=== PATIENT | female | born 1940 | race Caucasian/White ===

== ENCOUNTER 2017-08-20 17:59 | Inpatient (IN) ==
[2017-08-20] MEDS ORDERED: *HR* Metoprolol 5 MG/5 ML VIAL IVP PRN (20:01)
[2017-08-20] MEDS ORDERED: Dextrose Gel 15 GM PO PRN ×2 (20:06)
[2017-08-20] MEDS ORDERED: D5% in Water 1,000 ML IVC PRN (20:06)
[2017-08-20] MEDS ORDERED: *HR* Dextrose 50 % in Water (Syg) 50 ML SYRINGE IVP PRN (20:06)
[2017-08-20] MEDS: 0.9 % Sodium Chloride 1,000 ML IVC SCH (22:20)
[2017-08-20] MEDS: *HR* Metoprolol 5 MG/5 ML VIAL IVP SCH (23:26)
[2017-08-20] MEDS: Insulin LISPRO 300 UNITS/3 ML VIAL SQ SCH (23:26)
[2017-08-20] MEDS: Ondansetron 4 MG/2 ML VIAL IVP PRN (23:26)
[2017-08-21] MEDS: *HR* Morphine 2 MG/ML SYRINGE IVP PRN ×4 (03:46→18:40)
[2017-08-21 03:55] LABS: Basophils % 0.4 %; Hemoglobin 12.7 g/dL (11.5-15.4); Immature Granulocytes % 0.4 % (0-4); Red Cell Distribution Width 13.7 % (11.5-14.5)
[2017-08-21 03:57] LABS: Eosinophils # 0.1 K/mcL (0.0-0.6); Eosinophils % 2.3 %; Hematocrit 38.1 % (35.3-44.9); Immature Platelets 11.3 % (1.1-6.1); Lymphocytes # 0.6 K/mcL (0.6-4.6); Lymphocytes % 12.4 %; Mean Corpuscular HGB Conc 33.3 g/dL (31.6-35.5); Mean Corpuscular Hemoglobin 29.9 pg (28.0-33.3); Mean Corpuscular Volume 89.6 fL (83.0-100.0); Mean Platelet Volume 12.6 fL (9.4-12.4); Monocytes # 0.5 K/mcL (0.0-1.3); Monocytes % 9.7 %; Neutrophils # 3.9 K/mcL (1.6-8.9); Red Blood Count 4.25 M/mcL (3.82-4.97); Segmented Neutrophils % 74.8 %
[2017-08-21 04:00] LABS: Platelet Count 47 K/mcL (140-400)
[2017-08-21 04:07] LABS: BUN/Creatinine Ratio 17 (6-26); Blood Urea Nitrogen 15 mg/dL (7-20); Calcium 8.9 mg/dL (8.6-10.8); Carbon Dioxide 26 mEq/L (19-29); Chloride 103 mEq/L (98-109); Glucose 233 mg/dL (70-99); Magnesium 1.2 mg/dL (1.6-2.6); Osmolality,Calculated 290 (280-300); Phosphorous 2.5 mg/dL (2.3-4.7); Potassium 3.6 mEq/L (3.5-4.5); Sodium 136 mEq/L (136-145); eGFR For African Americans > 60 (> 60); eGFR For Non-African Americans > 60 (> 60)
[2017-08-21] MEDS: *HR* Heparin 5,000 UNIT/ML VIAL SQ SCH ×2 (05:50→18:34)
[2017-08-21] MEDS: Insulin LISPRO 300 UNITS/3 ML VIAL SQ SCH ×4 (05:51→23:28)
[2017-08-21] MEDS: *HR* Metoprolol 5 MG/5 ML VIAL IVP SCH ×4 (05:52→23:30)
[2017-08-21] MEDS: Ondansetron 4 MG/2 ML VIAL IVP PRN (06:00)
[2017-08-21] MEDS ORDERED: Magnesium Sulfate 4 GM in D5% in Water 100 ML IVPB ONE (07:08)
--- NOTE | 2017-08-21 07:10 | General Surg History&Physical ---
<Jeanie Paulino - Last Filed: 08/21/17 13:19> Date of Encounter: 08/21/17 Time of Encounter: 10:00 Assessment and Plan (1) Abdominal pain Status: Acute Presented with chief complaint of 3 days of abdominal pain, nausea, diarrhea mucinous/possibly bloody. CT showed possible small bowel obstruction. Patient is currently NPO. NG is placed with 250ml since admission of dark brown to dark red output. Plan: - hemocult test - KUB for NG tube placement - Diet: NPO - Activity order for ambulating TID - Chloraseptic spray Qualifiers: Abdominal location: generalized Qualified Code(s): R10.84 - Generalized abdominal pain (2) Chronic idiopathic thrombocytopenia Status: Chronic Patient admits to chronic thrombocytopenia with unknown cause. Patient denies easy bruising or bleeding. Platelet count is within normal range per her previous records at [facility]. Continue to monitor. (3) Hypomagnesemia Status: Acute Magnesium = 1.2. Patient given 4 g of magnesium sulfate IV. We will recheck in the morning. (4) Diarrhea Status: Resolved Diarrhea has resolved since yesterday afternoon. Will do hemocult testing. Qualifiers: Diarrhea type: unspecified type Qualified Code(s): R19.7 - Diarrhea, unspecified (5) HTN (hypertension) Status: Chronic Patient's blood pressure is well-controlled. Continue home medications of Spironolactone and Propranolol. Qualifiers: Hypertension type: essential hypertension Qualified Code(s): I10 - Essential (primary) hypertension (6) Diabetes mellitus Status: Chronic Patient recently went on glipizide for diabetes. Common side effects of glipizide include diarrhea, nausea. Patient will be placed on a sliding scale and we will discontinue glipizide for now. Qualifiers: Qualified Code(s): E11.9 - Type 2 diabetes mellitus without complications (7) DVT prophylaxis Status: Acute Intermittent pneumatic compression devices. History of Present Illness HPI: Ms. Stuart is a 77 year old female presented in [place] ED with 3 days of abdominal pain, nausea and 2 days of watery, possibly bloody diarrhea who is directly admitted to surgery for small bowel obstruction found on CT and found to have a UTI. Patient states that about 3 days ago she began having diffuse abdominal pain has not vomited. Her diarrhea was mucousy and she says she saw a possible bright red blood. She has hemorrhoids but this was with in the stool. Patient has never had a colonoscopy before. She denies travel history, sick contacts. Patient admits to weight loss of 15 pounds over the last 2-3 months but she was also started on Lasix about that time. Patient denies night sweats, fevers. Patient's surgical history is a hysterectomy 40 years ago. Today patient feels like her abdomen is still distended but she has not had any diarrhea since yesterday evening. She did have one pebble-like BM last night. Of note patient did start on glipizide about 3 days ago. Past Med Surg Social Fam HX - Past Medical History Medical history: cirrhosis, CHF, DVT, diabetes, hepatitis, hyperlipidemia, hypertension, valvular heart disease Psychiatric history: anxiety, depression - Past Surgical History Surgical History: hysterectomy - Social History Smoking Status: Never smoker Smokeless Tobacco Status: No Alcohol use: none Drug use: none - Family History Mother Hx Family Neurologic Disorders: Yes (alzheimers) Father Family Member Ethnicity: Non- Living Status: Hx Family Cardiac Disorders: Yes (CHF) Hx Family Respiratory Disorders: No Hx Family Cancer: No Hx Family GI Disorders: No Hx Family Endocrine Disorder: No Hx Family Neuromuscular Disorders: No Hx Family Neurologic Disorders: No Hx Family HEENT Disorders: No Hx Family Autoimmune Disorders: No Medications and Allergies Cholecalciferol (D-3) [Vitamin D] 1,000 unit PO DAILY 05/29/16 [History] Furosemide [Lasix] 40 mg PO DAILY 30 Days tablet 10/20/16 [Rx] Propranolol HCl 40 mg PO BID 08/20/17 [History] Spironolactone [Aldactone] 50 mg PO DAILY 08/20/17 [History] glipiZIDE [Glucotrol] 5 mg PO DAILY 08/20/17 [History] Nystatin POWDER [Nystop] 1 appl TP TID #1 bottle 08/24/17 [Rx] Potassium Chloride 10 meq PO DAILY #14 [email or web address] 08/24/17 [Rx] 3 Allergy/AdvReac Type Severity Reaction Status Date / Time meperidine Allergy Rash Verified 10/19/16 11:44 Review of Systems All systems PM: A 10-system review of systems was performed and is negative for pertinent findings except as documented above in the HPI. General Surgery Exam Initial Vital Signs Temp Pulse Resp BP Pulse Ox 97.2 F L 70 15 108/65 96 08/20/17 23:04 08/20/17 23:04 08/20/17 23:04 08/20/17 23:04 08/20/17 23:04 - Additional Findings Constitutional: Alert, in no acute distress, well nourished, well developed. Head: NG tube present in nostril with brownish/dark red outputNormocephalic, atraumatic, normal contour and symmetric, no masses, lesions or scars Heart: Normal, regular rate and rhythm, + murmurs Lungs: Clear to auscultation, no wheezes, rales, or rhonchi Abdomen: moderate distension, diffuse tenderness worst at suprapubic area, Soft , and no masses palpable, bowel sounds present and normal, no guarding or rigidity. Extremities: No clubbing, cyanosis, or edema, radial pulse +2/4, capillary refill <2sec. Skin: Skin warm and dry, no lesions, no rashes, no jaundice Neurologic: Cranial nerves II through XII grossly intact, no focal deficits, strength within normal limits in all extremities Psych: Cooperative with exam, good eye contact, cognitive function intact, judgment good insight good, speech clear, thought process logical, and goal directed Results - Labs 08/21/17 03:10 08/21/17 03:10 Abnormal lab results Plt Count 47 K/mcL (140-400) L 08/21/17 03:10 MPV 12.6 fL (9.4-12.4) H 08/21/17 03:10 Immature Plt Fraction 11.3 % (1.1-6.1) H 08/21/17 03:10 Glucose 233 mg/dL (70-99) H 08/21/17 03:10 POC Glucose 241 (58-89) H 08/21/17 05:41 Magnesium 1.2 mg/dL (1.6-2.6) L 08/21/17 03:10 Diabetes panel 08/21/17 Range/Units 03:10 Sodium 136 (136-145) mEq/L Potassium 3.6 (3.5-4.5) mEq/L Chloride 103 (98-109) mEq/L Carbon Dioxide 26 (19-29) mEq/L BUN 15 (7-20) mg/dL Creatinine 0.88 (0.57-1.11) mg/dL Glucose 233 H (70-99) mg/dL Calcium 8.9 (8.6-10.8) mg/dL Calcium panel 08/21/17 Range/Units 03:10 Calcium 8.9 (8.6-10.8) mg/dL Phosphorus 2.5 (2.3-4.7) mg/dL Pituitary panel 08/21/17 Range/Units 03:10 Sodium 136 (136-145) mEq/L Potassium 3.6 (3.5-4.5) mEq/L Chloride 103 (98-109) mEq/L Carbon Dioxide 26 (19-29) mEq/L BUN 15 (7-20) mg/dL Creatinine 0.88 (0.57-1.11) mg/dL Glucose 233 H (70-99) mg/dL Calcium 8.9 (8.6-10.8) mg/dL Adrenal panel 08/21/17 Range/Units 03:10 Sodium 136 (136-145) mEq/L Potassium 3.6 (3.5-4.5) mEq/L Chloride 103 (98-109) mEq/L Carbon Dioxide 26 (19-29) mEq/L BUN 15 (7-20) mg/dL Creatinine 0.88 (0.57-1.11) mg/dL Glucose 233 H (70-99) mg/dL Calcium 8.9 (8.6-10.8) mg/dL All other labs normal. <Kristen Freeman - Last Filed: 08/27/17 12:15> Date of Encounter: 08/21/17 Assessment and Plan (1) Abdominal pain Status: Resolved The assessment and plan as outlined above was discussed with the patient and/or family members who expressed understanding and agreement. All questions were answered. Qualifiers: Abdominal location: generalized Qualified Code(s): R10.84 - Generalized abdominal pain (2) DVT prophylaxis Status: Acute The assessment and plan as outlined above was discussed with the patient and/or family members who expressed understanding and agreement. All questions were answered. (3) Hypomagnesemia Status: Acute The assessment and plan as outlined above was discussed with the patient and/or family members who expressed understanding and agreement. All questions were answered. (4) Small bowel obstruction Status: Resolved The assessment and plan as outlined above was discussed with the patient and/or family members who expressed understanding and agreement. All questions were answered. CT scan shows small bowel obstruction continue conservative measures npo, ngt decompression prn pain control ivh hydration serial abdominal exams (5) Cirrhosis of liver Status: Chronic The assessment and plan as outlined above was discussed with the patient and/or family members who expressed understanding and agreement. All questions were answered. basic assessment shows patient is a child gómez B, some info is a little dated ( few months old) will recheck albumin and lfts in am mild to moderate amount of ascites but no encephalopathy Qualifiers: Hepatic cirrhosis type: unspecified hepatic cirrhosis Ascites presence: with ascites Qualified Code(s): K74.60 - Unspecified cirrhosis of liver (6) Diabetes mellitus Status: Chronic The assessment and plan as outlined above was discussed with the patient and/or family members who expressed understanding and agreement. All questions were answered. 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 All questions were answered. Qualifiers: Hypertension type: essential hypertension Qualified Code(s): I10 - Essential (primary) hypertension (8) Pancytopenia Status: Chronic The assessment and plan as outlined above was discussed with the patient and/or family members who expressed understanding and agreement. All questions were answered. (9) Diabetes type 2, controlled Status: Chronic The assessment and plan as outlined above was discussed with the patient and/or family members who expressed understanding and agreement. All questions were answered. npo, ivf hydration SSI/MBS, controlled, monitor Qualifiers: Diabetes mellitus complication status: without complication (10) HTN (hypertension) Status: Chronic The assessment and plan as outlined above was discussed with the patient and/or family members who expressed understanding and agreement. All questions were answered. holding home medication, normotensive, montiro, schedule lopressor Qualifiers: Hypertension type: essential hypertension Qualified Code(s): I10 - Essential (primary) hypertension History of Present Illness Chief complaint: abdominal pain, N/V HPI: Ms. Stuart is a 77 year old female with abdominal pain that began three days ago. The pain starts in her pelvis and radiates up into her abdomen. The pain is sharp. She has had diarrhea that contained blood for about 24 hrs. She has lost 15 lbs over last 3 months but recently started lasix due to cirrhosis/ ascites?. No fevers, chills or night sweats. She has never had a colonoscopy. She has a history of cirrhosis and ascites. Last paracentesis was approx 1 year ago. She became very bloated and the pain became more intense so she presented to the ED where labs and imaging was performed. CT shows dilated loops small bowel with sbo and transition point. She does feel a little better since NGT has been placed. Pain is improved but still present. She is passing flatus but no bm. SHe is still very distended Past Med Surg Social Fam HX - Past Medical History Source: patient - Past Surgical History Surgical History: other (paracentesis) Review of Systems All systems PM: reviewed and no additional remarkable complaints except as stated All systems PM: A 10-system review of systems was performed and is negative for pertinent findings except as documented above in the HPI. General Surgery Exam Initial Vital Signs Temp Pulse Resp BP Pulse Ox 97.2 F L 70 15 108/65 96 08/20/17 23:04 08/20/17 23:04 08/20/17 23:04 08/20/17 23:04 08/20/17 23:04 - General physical appearance well developed, well nourished, no distress, obese - Eyes PERRL, normal ocular movement - ENT normal mucosa, normocephalic - Respiratory normal expansion, clear to auscultation - Cardiovascular Cardiovascular exam: Present: RRR, no murmurs/rubs/gallops - Abdomen Abdomen general surgery: Present: soft, distended, tender. Absent: bowel sounds present, guarding, rebound Abdominal Tenderness: Present: diffusely - Integumentary Integumentary general surgery: Present: warm and dry, no abnormal pigmentation - Neurologic Present: CN 2-12 grossly intact - Musculoskeletal Present: normal gait, normal posture - Psychiatric Psychiatric general surgery: Present: A&Ox3, speech is normal Results - Labs 08/24/17 05:23 08/24/17 05:23 Abnormal lab results Plt Count 47 K/mcL (140-400) L 08/21/17 03:10 MPV 12.6 fL (9.4-12.4) H 08/21/17 03:10 Immature Plt Fraction 11.3 % (1.1-6.1) H 08/21/17 03:10 Glucose 233 mg/dL (70-99) H 08/21/17 03:10 POC Glucose 236 (58-89) H 08/21/17 11:54 Magnesium 1.2 mg/dL (1.6-2.6) L 08/21/17 03:10 Diabetes panel 08/21/17 Range/Units 03:10 Sodium 136 (136-145) mEq/L Potassium 3.6 (3.5-4.5) mEq/L Chloride 103 (98-109) mEq/L Carbon Dioxide 26 (19-29) mEq/L BUN 15 (7-20) mg/dL Creatinine 0.88 (0.57-1.11) mg/dL Glucose 233 H (70-99) mg/dL Calcium 8.9 (8.6-10.8) mg/dL Calcium panel 08/21/17 Range/Units 03:10 Calcium 8.9 (8.6-10.8) mg/dL Phosphorus 2.5 (2.3-4.7) mg/dL Pituitary panel 08/21/17 Range/Units 03:10 Sodium 136 (136-145) mEq/L Potassium 3.6 (3.5-4.5) mEq/L Chloride 103 (98-109) mEq/L Carbon Dioxide 26 (19-29) mEq/L BUN 15 (7-20) mg/dL Creatinine 0.88 (0.57-1.11) mg/dL Glucose 233 H (70-99) mg/dL Calcium 8.9 (8.6-10.8) mg/dL Adrenal panel 08/21/17 Range/Units 03:10 Sodium 136 (136-145) mEq/L Potassium 3.6 (3.5-4.5) mEq/L Chloride 103 (98-109) mEq/L Carbon Dioxide 26 (19-29) mEq/L BUN 15 (7-20) mg/dL Creatinine 0.88 (0.57-1.11) mg/dL Glucose 233 H (70-99) mg/dL Calcium 8.9 (8.6-10.8) mg/dL All other labs normal. - Imaging CT scan - abdomen: report reviewed, image reviewed CT scan - pelvis: report reviewed, image reviewed - Attending Attestation I examined this patient and my medical decision-making was reviewed with the Resident Physician. I agree with the documented findings, disposition and treatment plan as described except to the extent set forth below.
[2017-08-21] MEDS: 0.9 % Sodium Chloride 1,000 ML IVC SCH ×2 (08:06→22:33)
[2017-08-21] MEDS: Magnesium Sulfate 2 GM in D5% in Water 100 ML IVPB SCH ×2 (08:07→09:43)
[2017-08-21] MEDS: Pantoprazole 40 MG VIAL IVP SCH (08:07)
[2017-08-21] MEDS ORDERED: Chloraseptic Spray 177 ML BOTTLE MM PRN (13:14)
[2017-08-22 04:37] LABS: Basophils % 0.6 %; Immature Granulocytes % 0.6 % (0-4)
[2017-08-22 04:40] LABS: Eosinophils # 0.2 K/mcL (0.0-0.6); Eosinophils % 4.5 %; Hematocrit 37.1 % (35.3-44.9); Hemoglobin 12.1 g/dL (11.5-15.4); Immature Platelets 10.2 % (1.1-6.1); Lymphocytes # 0.6 K/mcL (0.6-4.6); Lymphocytes % 16.3 %; Mean Corpuscular HGB Conc 32.6 g/dL (31.6-35.5); Mean Corpuscular Hemoglobin 29.8 pg (28.0-33.3); Mean Corpuscular Volume 91.4 fL (83.0-100.0); Mean Platelet Volume 11.7 fL (9.4-12.4); Monocytes # 0.5 K/mcL (0.0-1.3); Monocytes % 12.7 %; Neutrophils # 2.4 K/mcL (1.6-8.9); Platelet Count 48 K/mcL (140-400); Red Blood Count 4.06 M/mcL (3.82-4.97); Red Cell Distribution Width 13.9 % (11.5-14.5); Segmented Neutrophils % 65.3 %
[2017-08-22 04:57] LABS: Alanine Aminotransferase 18 Units/L (0-55); Albumin 2.5 g/dL (3.5-5.0); Albumin/Globulin Ratio 0.7 (1.1-2.2); Alkaline Phosphatase 101 Units/L (38-126); Aspartate Amino Transferase 32 Units/L (5-34); BUN/Creatinine Ratio 18 (6-26); Blood Urea Nitrogen 14 mg/dL (7-20); Calcium 8.3 mg/dL (8.6-10.8); Carbon Dioxide 27 mEq/L (19-29); Chloride 108 mEq/L (98-109); Globulin 3.6 g/dL (2.4-3.5); Glucose 178 mg/dL (70-99); Magnesium 1.8 mg/dL (1.6-2.6); Osmolality,Calculated 295 (280-300); Phosphorous 2.1 mg/dL (2.3-4.7); Potassium 3.8 mEq/L (3.5-4.5); Sodium 140 mEq/L (136-145); Total Protein 6.1 g/dL (6.0-8.3); eGFR For African Americans > 60 (> 60); eGFR For Non-African Americans > 60 (> 60)
[2017-08-22] MEDS: *HR* Metoprolol 5 MG/5 ML VIAL IVP SCH ×4 (05:44→23:38)
[2017-08-22] MEDS: *HR* Heparin 5,000 UNIT/ML VIAL SQ SCH ×2 (05:46→19:03)
[2017-08-22] MEDS: Insulin LISPRO 300 UNITS/3 ML VIAL SQ SCH ×4 (05:47→23:40)
[2017-08-22] MEDS: 0.9 % Sodium Chloride 1,000 ML IVC SCH ×2 (05:49→20:27)
[2017-08-22] MEDS: Pantoprazole 40 MG VIAL IVP SCH (09:31)
--- NOTE | 2017-08-22 10:28 | General Surgery Progress Note ---
<Jeanie Paulino - Last Filed: 08/22/17 13:05> Date of Encounter: 08/22/17 Time of Encounter: 08:30 - Assessment and Plan (1) Abdominal pain Current Visit: Yes Status: Acute Presented with chief complaint of 3 days of abdominal pain, nausea, diarrhea mucinous/possibly bloody. CT showed possible small bowel obstruction. Patient is currently NPO. NG is placed with 450ml since admission of dark brown to dark red output. KUB showed normal NG placement. Plan: - 2 view abdominal XR - hemocult test pending BM - straight cath, pending UA/cultures - Diet: NPO - Activity order for ambulating TID - Chloraseptic spray Qualifiers: Abdominal location: generalized Qualified Code(s): R10.84 - Generalized abdominal pain (2) Chronic idiopathic thrombocytopenia Current Visit: Yes Status: Chronic Patient admits to chronic thrombocytopenia with unknown cause. Patient denies easy bruising or bleeding. Platelet count is within normal range per her previous records at [facility]. Continue to monitor. (3) Hypomagnesemia Current Visit: Yes Status: Acute Magnesium = 1.2 on 08/21/17. Today Mg= 1.8 We will recheck in the morning. (4) Diarrhea Current Visit: Yes Status: Resolved Diarrhea has resolved. Hemocult testing pending. Qualifiers: Diarrhea type: unspecified type Qualified Code(s): R19.7 - Diarrhea, unspecified (5) HTN (hypertension) Current Visit: No Status: Chronic Patient's blood pressure is well-controlled. Continue home medications of Spironolactone and Propranolol. Qualifiers: Hypertension type: essential hypertension Qualified Code(s): I10 - Essential (primary) hypertension (6) Diabetes mellitus Current Visit: No Status: Chronic Patient recently went on glipizide for diabetes. Common side effects of glipizide include diarrhea, nausea. Patient will be placed on a sliding scale and we will discontinue glipizide for now. Qualifiers: Qualified Code(s): E11.9 - Type 2 diabetes mellitus without complications (7) DVT prophylaxis Current Visit: Yes Status: Acute Intermittent pneumatic compression devices. Subjective Narrative: Ms. Stuart is a 77 year old female presented in [facility] ED with 3 days of abdominal pain, nausea and 2 days of watery, possibly bloody diarrhea who is directly admitted to surgery for small bowel obstruction found on CT. Today, patient states that her abdominal pain is feeling better than yesterday. Patient admits to multiple episodes of flatus. Denies BM. Objective Vital Signs - Last 8 Hours Temp Pulse Resp BP Pulse Ox 08/22/17 09:29 95 08/22/17 06:43 97.7 F 73 18 121/75 95 08/22/17 05:46 98.2 F 84 17 131/78 94 Intake and Output 08/21/17 08/22/17 08/22/17 23:59 07:59 15:59 Intake Total 1000 / 1000 1000 / 1000 0 / 0 Output Total 0 / 0 350 / 350 Balance 1000 / 1000 650 / 650 0 / 0 Intake: IV Fluids 1000 / 1000 1000 / 1000 0.9 % Sodium Chloride 1,000 ML 1000 / 1000 1000 / 1000 @ 100 mls/hr IVC .Q10H MILAGROS Rx#: [id number] Oral 0 / 0 0 / 0 0 / 0 Output: Urine 0 / 0 150 / 150 Gastric Drainage 0 / 0 200 / 200 Other: Meal NPO Percent of Meal Consumed 0% Weight 95.39 kg Blood Glucose* 168 177 Patient Weight 08/22/17 23:59 Weight 95.39 kg - Additional Exam Constitutional: Alert, in no acute distress, well nourished, well developed. Head: NG tube present in nostril with brownish/dark red outputNormocephalic, atraumatic, normal contour and symmetric, no masses, lesions or scars Heart: Normal, regular rate and rhythm, + murmurs Lungs: Clear to auscultation, no wheezes, rales, or rhonchi Abdomen: moderate distension, diffuse tenderness worse at suprapubic area, no CVA tenderness, Soft, and no masses palpable, bowel sounds present and normal, no guarding or rigidity. Extremities: No clubbing, cyanosis, or edema, radial pulse +2/4, capillary refill <2sec. Skin: Skin warm and dry, no lesions, no rashes, no jaundice Neurologic: Cranial nerves II through XII grossly intact, no focal deficits, strength within normal limits in all extremities Psych: Cooperative with exam, good eye contact, cognitive function intact, judgment good insight good, speech clear, thought process logical, and goal directed - Labs 08/22/17 04:10 08/22/17 04:10 Diabetes panel 08/22/17 Range/Units 04:10 Sodium 140 (136-145) mEq/L Potassium 3.8 (3.5-4.5) mEq/L Chloride 108 (98-109) mEq/L Carbon Dioxide 27 (19-29) mEq/L BUN 14 (7-20) mg/dL Creatinine 0.77 (0.57-1.11) mg/dL Glucose 178 H (70-99) mg/dL Calcium 8.3 L (8.6-10.8) mg/dL AST 32 (5-34) Units/L ALT 18 (0-55) Units/L Alkaline Phosphatase 101 (38-126) Units/L Albumin 2.5 L (3.5-5.0) g/dL Calcium panel 08/22/17 Range/Units 04:10 Calcium 8.3 L (8.6-10.8) mg/dL Phosphorus 2.1 L (2.3-4.7) mg/dL Albumin 2.5 L (3.5-5.0) g/dL Pituitary panel 08/22/17 Range/Units 04:10 Sodium 140 (136-145) mEq/L Potassium 3.8 (3.5-4.5) mEq/L Chloride 108 (98-109) mEq/L Carbon Dioxide 27 (19-29) mEq/L BUN 14 (7-20) mg/dL Creatinine 0.77 (0.57-1.11) mg/dL Glucose 178 H (70-99) mg/dL Calcium 8.3 L (8.6-10.8) mg/dL Adrenal panel 08/22/17 Range/Units 04:10 Sodium 140 (136-145) mEq/L Potassium 3.8 (3.5-4.5) mEq/L Chloride 108 (98-109) mEq/L Carbon Dioxide 27 (19-29) mEq/L BUN 14 (7-20) mg/dL Creatinine 0.77 (0.57-1.11) mg/dL Glucose 178 H (70-99) mg/dL Calcium 8.3 L (8.6-10.8) mg/dL Total Bilirubin 2.0 H (0.2-1.2) mg/dL AST 32 (5-34) Units/L ALT 18 (0-55) Units/L Alkaline Phosphatase 101 (38-126) Units/L Albumin 2.5 L (3.5-5.0) g/dL Consult Discharge Plan - Plan Referrals: Germaine Herring, B[facility] [employer] [Primary Care Provider] - <Kristen Freeman - Last Filed: 08/22/17 14:42> Date of Encounter: 08/22/17 Time of Encounter: 08:30 - Assessment and Plan (1) Abdominal pain Current Visit: Yes Status: Acute pain improved and is not present currently she is passing flatus but no bm she feels less distended today AXR shows nonspecific bowel gas pattern will check SBFT, if normal will pull ngt and start clears Qualifiers: Abdominal location: generalized Qualified Code(s): R10.84 - Generalized abdominal pain (2) DVT prophylaxis Current Visit: Yes Status: Acute (3) Hypomagnesemia Current Visit: Yes Status: Acute (4) Small bowel obstruction Current Visit: No Status: Acute sbo improving, passing flatus without bm checked axr, normal gas pattern, will check sbft (5) Cirrhosis of liver Current Visit: No Status: Chronic Qualifiers: Hepatic cirrhosis type: unspecified hepatic cirrhosis Ascites presence: with ascites Qualified Code(s): K74.60 - Unspecified cirrhosis of liver (6) Diabetes mellitus Current Visit: No Status: Chronic continue SSI/mbs checks Qualifiers: Diabetes mellitus type: type 2 Diabetes mellitus complication status: without complication 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 correction use Qualified Code(s): E11.9 - Type 2 diabetes mellitus without complications (7) HTN (hypertension) Current Visit: No Status: Chronic continue holding home medication continue scheduled lopressor, BP wnl Qualifiers: Hypertension type: essential hypertension Qualified Code(s): I10 - Essential (primary) hypertension (8) Pancytopenia Current Visit: No Status: Chronic Subjective Patient reports: no new complaints, feels better, still having pain, pain is less, flatus, no bowel movement, afebrile Objective Vital Signs - Last 8 Hours Temp Pulse Resp BP Pulse Ox 08/22/17 13:18 129/73 08/22/17 09:29 95 08/22/17 06:43 97.7 F 73 18 121/75 95 Intake and Output 08/21/17 08/22/17 08/22/17 23:59 07:59 15:59 Intake Total 1000 / 1000 1000 / 1000 0 / 0 Output Total 0 / 0 350 / 350 75 / 75 Balance 999 / 999 650 / 650 -75 / -75 Intake: IV Fluids 1000 / 999 1000 / 1000 0.9 % Sodium Chloride 1,000 ML 1000 / 999 1000 / 1000 @ 100 mls/hr IVC .Q10H [facility]AGROS Rx#: [id number] Oral 0 / 0 0 / 0 0 / 0 Output: Urine 0 / 0 150 / 150 75 / 75 Gastric Drainage 0 / 0 200 / 200 Other: Meal NPO Percent of Meal Consumed 0% Weight 95.39 kg Blood Glucose* 168 177 150 Patient Weight 08/22/17 23:59 Weight 95.39 kg - General physical appearance well developed, well nourished, no distress - Eyes PERRL, normal ocular movement - ENT normal mucosa, normocephalic - Neck Neck exam: trachea midline - Respiratory normal expansion, clear to auscultation - Cardiovascular Cardiovascular exam: Present: RRR - Abdomen Abdomen: Present: soft. Absent: bowel sounds present, tender, guarding, rebound - Integumentary no rash, no growths - Neurologic CN 2-12 grossly intact - Musculoskeletal normal posture - Psychiatric oriented to time, oriented to person, oriented to place, memory intact - Labs 08/22/17 04:10 08/22/17 04:10 Diabetes panel 08/22/17 Range/Units 04:10 Sodium 140 (136-145) mEq/L Potassium 3.8 (3.5-4.5) mEq/L Chloride 108 (98-109) mEq/L Carbon Dioxide 27 (19-29) mEq/L BUN 14 (7-20) mg/dL Creatinine 0.77 (0.57-1.11) mg/dL Glucose 178 H (70-99) mg/dL Calcium 8.3 L (8.6-10.8) mg/dL AST 32 (5-34) Units/L ALT 18 (0-55) Units/L Alkaline Phosphatase 101 (38-126) Units/L Albumin 2.5 L (3.5-5.0) g/dL Calcium panel 08/22/17 Range/Units 04:10 Calcium 8.3 L (8.6-10.8) mg/dL Phosphorus 2.1 L (2.3-4.7) mg/dL Albumin 2.5 L (3.5-5.0) g/dL Pituitary panel 08/22/17 Range/Units 04:10 Sodium 140 (136-145) mEq/L Potassium 3.8 (3.5-4.5) mEq/L Chloride 108 (98-109) mEq/L Carbon Dioxide 27 (19-29) mEq/L BUN 14 (7-20) mg/dL Creatinine 0.77 (0.57-1.11) mg/dL Glucose 178 H (70-99) mg/dL Calcium 8.3 L (8.6-10.8) mg/dL Adrenal panel 08/22/17 Range/Units 04:10 Sodium 140 (136-145) mEq/L Potassium 3.8 (3.5-4.5) mEq/L Chloride 108 (98-109) mEq/L Carbon Dioxide 27 (19-29) mEq/L BUN 14 (7-20) mg/dL Creatinine 0.77 (0.57-1.11) mg/dL Glucose 178 H (70-99) mg/dL Calcium 8.3 L (8.6-10.8) mg/dL Total Bilirubin 2.0 H (0.2-1.2) mg/dL AST 32 (5-34) Units/L ALT 18 (0-55) Units/L Alkaline Phosphatase 101 (38-126) Units/L Albumin 2.5 L (3.5-5.0) g/dL - Imaging Abdominal x-ray: report reviewed, image reviewed - Attending Attestation I examined this patient and my medical decision-making was reviewed with the Resident Physician. I agree with the documented findings, disposition and treatment plan as described except to the extent set forth below.
[2017-08-22] MEDS: Ondansetron 4 MG/2 ML VIAL IVP PRN (20:27)
[2017-08-22] MEDS: *HR* Morphine 2 MG/ML SYRINGE IVP PRN (20:29)
[2017-08-23 04:49] LABS: Basophils % 1.1 %
[2017-08-23 04:52] LABS: Eosinophils # 0.1 K/mcL (0.0-0.6); Hemoglobin 11.2 g/dL (11.5-15.4); Immature Granulocytes % 0.7 % (0-4); Lymphocytes # 0.6 K/mcL (0.6-4.6); Mean Corpuscular HGB Conc 32.9 g/dL (31.6-35.5); Mean Corpuscular Hemoglobin 30.4 pg (28.0-33.3); Mean Corpuscular Volume 92.1 fL (83.0-100.0); Mean Platelet Volume 11.6 fL (9.4-12.4); Monocytes # 0.3 K/mcL (0.0-1.3); Monocytes % 11.3 %; Neutrophils # 1.6 K/mcL (1.6-8.9); Red Blood Count 3.69 M/mcL (3.82-4.97); Segmented Neutrophils % 59.9 %
[2017-08-23 05:02] LABS: Platelet Count 51 K/mcL (140-400)
[2017-08-23 05:10] LABS: BUN/Creatinine Ratio 18 (6-26); Blood Urea Nitrogen 14 mg/dL (7-20); Calcium 8.4 mg/dL (8.6-10.8); Carbon Dioxide 27 mEq/L (19-29); Chloride 113 mEq/L (98-109); Glucose 139 mg/dL (70-99); Osmolality,Calculated 301 (280-300); Potassium 3.8 mEq/L (3.5-4.5); Sodium 144 mEq/L (136-145); eGFR For African Americans > 60 (> 60); eGFR For Non-African Americans > 60 (> 60)
[2017-08-23] MEDS: Insulin LISPRO 300 UNITS/3 ML VIAL SQ SCH ×3 (05:17→17:08)
[2017-08-23] MEDS: *HR* Metoprolol 5 MG/5 ML VIAL IVP SCH ×3 (05:18→17:09)
[2017-08-23] MEDS: *HR* Heparin 5,000 UNIT/ML VIAL SQ SCH ×2 (05:19→17:08)
[2017-08-23] MEDS: Pantoprazole 40 MG VIAL IVP SCH (07:51)
[2017-08-23] MEDS: 0.9 % Sodium Chloride 1,000 ML IVC SCH ×3 (07:51→20:41)
[2017-08-23 08:45] LABS: Magnesium 1.6 mg/dL (1.6-2.6)
--- NOTE | 2017-08-23 09:34 | General Surgery Progress Note ---
<Jeanie Paulino - Last Filed: 08/23/17 09:30> Date of Encounter: 08/23/17 Time of Encounter: 09:31 - Assessment and Plan (1) Abdominal pain Current Visit: Yes Status: Acute Presented with chief complaint of 3 days of abdominal pain, nausea, diarrhea mucinous/possibly bloody. CT showed possible small bowel obstruction. Straight cath culture showed no bacterial growth. Patient is now on clear liquids and is tolerating well without nausea or vomiting. Patient's abdominal pain is absent this morning. Abd XR showed normal gas pattern. SBFT showed no obstruction. NG has been discontinued. Plan: - hemocult test pending BM - Diet: Clear liquids - Activity order for ambulating TID - IV fluids NS 75ml/hr running - Protonix 40mg IVP daily Qualifiers: Abdominal location: generalized Qualified Code(s): R10.84 - Generalized abdominal pain (2) Chronic idiopathic thrombocytopenia Current Visit: Yes Status: Chronic Patient admits to chronic thrombocytopenia with unknown cause. Patient denies easy bruising or bleeding. Platelet count is within normal range per her previous records at [place]. Continue to monitor. (3) Hypomagnesemia Current Visit: Yes Status: Acute Magnesium = 1.2 on 08/21/17. Today Mg= 1.6. Given Mg sulf 2gm IV today. We will recheck in the morning. (4) Diarrhea Current Visit: Yes Status: Acute Diarrhea began again yesterday. Patient's abdominal pain has resolved. Hemocult testing pending. Qualifiers: Diarrhea type: unspecified type Qualified Code(s): R19.7 - Diarrhea, unspecified (5) HTN (hypertension) Current Visit: No Status: Chronic Patient's blood pressure is well-controlled. Continue Lopressor 5mg IV Q6hrs. Qualifiers: Hypertension type: essential hypertension Qualified Code(s): I10 - Essential (primary) hypertension (6) Diabetes mellitus Current Visit: No Status: Chronic Patient recently went on glipizide for diabetes. Common side effects of glipizide include diarrhea, nausea. Patient will be placed on a sliding scale and we will discontinue glipizide for now. Qualifiers: Diabetes mellitus type: type 2 Diabetes mellitus complication status: without complication Diabetes mellitus equipment operator intermodal yard insulin use: without equipment operator intermodal yard use Qualified Code(s): E11.9 - Type 2 diabetes mellitus without complications (7) DVT prophylaxis Current Visit: Yes Status: Acute Intermittent pneumatic compression devices. Subjective Narrative: Ms. Stuart is a 77 year old female presented in [place] ED with 3 days of abdominal pain, nausea and 2 days of watery, possibly bloody diarrhea who is directly admitted to surgery for small bowel obstruction found on CT. Today, patient states that she is feeling better. Abdominal pain and back pain is gone. Patient says that she has had diarrhea. She has had no nausea or vomiting with the clear liquids this morning and is tolerating them well. NG tube has been removed. Patient denies SOB, coughing, CP. Objective Vital Signs - Last 8 Hours Temp Pulse Resp BP Pulse Ox 08/23/17 07:00 97.8 F 84 15 95/61 95 08/23/17 05:06 98.1 F 77 16 107/64 95 Intake and Output 08/22/17 08/23/17 08/23/17 23:59 07:59 15:59 Intake Total 240 / 240 1790 / 1790 Output Total 75 / 75 400 / 400 Balance 165 / 165 1390 / 1390 Intake: IV Fluids 1000 / 1000 0.9 % Sodium Chloride 1,000 ML 1000 / 1000 @ 75 mls/hr IVC .[id number] [facility] Rx #:[id number] Oral 240 / 240 790 / 790 Output: Urine 75 / 75 Urine/Stool Mix 400 / 400 Other: Stool Size Copious Copious Stool Consistency liquid liquid Stool Color Yellow Brown Green Weight 94 kg Blood Glucose* 182 139 Patient Weight 08/23/17 23:59 Weight 94 kg - Additional Exam Constitutional: Alert, in no acute distress, well nourished, well developed. Head: NG tube removed, Normocephalic, atraumatic, normal contour and symmetric, no masses, lesions or scars Heart: Normal, regular rate and rhythm, + murmurs Lungs: + rhonchi on LLL, Clear to auscultation, no wheezes, rales, or rhonchi Abdomen: moderate distension, no CVA tenderness, Soft, non-tender and no masses palpable, bowel sounds present and normal, no guarding or rigidity. Extremities: No clubbing, cyanosis, or edema, radial pulse +2/4, capillary refill <2sec. Skin: Skin warm and dry, no lesions, no rashes, no jaundice Neurologic: Cranial nerves II through XII grossly intact, no focal deficits, strength within normal limits in all extremities Psych: Cooperative with exam, good eye contact, cognitive function intact, judgment good insight good, speech clear, thought process logical, and goal directed - Labs 08/23/17 04:29 08/23/17 04:29 Diabetes panel 08/23/17 Range/Units 04:29 Sodium 144 (136-145) mEq/L Potassium 3.8 (3.5-4.5) mEq/L Chloride 113 H (98-109) mEq/L Carbon Dioxide 27 (19-29) mEq/L BUN 14 (7-20) mg/dL Creatinine 0.76 (0.57-1.11) mg/dL Glucose 139 H (70-99) mg/dL Calcium 8.4 L (8.6-10.8) mg/dL Calcium panel 08/23/17 Range/Units 04:29 Calcium 8.4 L (8.6-10.8) mg/dL Pituitary panel 08/23/17 Range/Units 04:29 Sodium 144 (136-145) mEq/L Potassium 3.8 (3.5-4.5) mEq/L Chloride 113 H (98-109) mEq/L Carbon Dioxide 27 (19-29) mEq/L BUN 14 (7-20) mg/dL Creatinine 0.76 (0.57-1.11) mg/dL Glucose 139 H (70-99) mg/dL Calcium 8.4 L (8.6-10.8) mg/dL Adrenal panel 08/23/17 Range/Units 04:29 Sodium 144 (136-145) mEq/L Potassium 3.8 (3.5-4.5) mEq/L Chloride 113 H (98-109) mEq/L Carbon Dioxide 27 (19-29) mEq/L BUN 14 (7-20) mg/dL Creatinine 0.76 (0.57-1.11) mg/dL Glucose 139 H (70-99) mg/dL Calcium 8.4 L (8.6-10.8) mg/dL - Imaging Abdominal x-ray: report reviewed, image reviewed Additional Studies: SBFT report and imagines have been reviewed. Consult Discharge Plan - Plan Referrals: eGrmaine Herring CNP [Primary Care Provider] - Westley De Jesus MD [Partnered Physician] - (please make patient to be seen for rectocele) <JovaniKristen mantilla L - Last Filed: 08/24/17 10:00> Date of Encounter: 08/23/17 Time of Encounter: 18:25 - Assessment and Plan (1) Abdominal pain Current Visit: Yes Status: Acute restart home meds pain resolved sbft wnl tolerating fulls Qualifiers: Abdominal location: generalized Qualified Code(s): R10.84 - Generalized abdominal pain (2) DVT prophylaxis Current Visit: Yes Status: Acute (3) Small bowel obstruction Current Visit: No Status: Resolved resolved (4) Cirrhosis of liver Current Visit: No Status: Chronic Qualifiers: Hepatic cirrhosis type: unspecified hepatic cirrhosis Ascites presence: with ascites Qualified Code(s): K74.60 - Unspecified cirrhosis of liver (5) Diabetes mellitus Current Visit: No Status: Chronic continue ssi if needed restart home glipizide Qualifiers: Diabetes mellitus type: type 2 Diabetes mellitus complication status: without complication Diabetes mellitus retirement insulin use: without retirement use Qualified Code(s): E11.9 - Type 2 diabetes mellitus without complications (6) HTN (hypertension) Current Visit: No Status: Chronic Qualifiers: Hypertension type: essential hypertension Qualified Code(s): I10 - Essential (primary) hypertension (7) Cutaneous candidiasis Current Visit: Yes Status: Acute (8) Rectocele Current Visit: Yes Status: Acute Subjective Narrative: tolerating fulls, no nausea no further abdominal pain patient has never had a colonoscopy, is stating nurses are telling her she has a polyp in her vagina Objective Vital Signs - Last 8 Hours Temp Pulse Resp BP Pulse Ox 08/24/17 07:03 98.0 F 59 17 126/76 94 08/24/17 05:03 98.3 F 81 16 107/58 97 Intake and Output 08/23/17 08/24/17 08/24/17 23:59 07:59 15:59 Intake Total 100 / 100 240 / 240 Output Total 600 / 600 Balance -500 / -500 240 / 240 Intake: Oral 100 / 100 240 / 240 Output: Urine 600 / 600 Other: Meal Dinner Breakfast Percent of Meal Consumed 100% 5% Stool Size Smear Stool Consistency loose Stool Color Green Blood Glucose* 207 133 - General physical appearance well developed, well nourished, no distress - Eyes PERRL, normal ocular movement - ENT normal mucosa, atraumatic, normocephalic - Neck Neck exam: trachea midline - Respiratory normal expansion, normal respiratory effort - Cardiovascular Cardiovascular exam: Present: RRR - Abdomen Abdomen: Present: bowel sounds present, soft, non tender. Absent: distended - Genitourinary other (rectocele) - Integumentary no growths, other (cutaneous candidiasis under pannus fold) - Neurologic CN 2-12 grossly intact - Musculoskeletal normal posture - Psychiatric oriented to time, oriented to person, oriented to place - Labs 08/24/17 05:23 08/24/17 05:23 Diabetes panel 08/24/17 Range/Units 05:23 Sodium 140 (136-145) mEq/L Potassium 3.2 L (3.5-4.5) mEq/L Chloride 107 (98-109) mEq/L Carbon Dioxide 27 (19-29) mEq/L BUN 9 (7-20) mg/dL Creatinine 0.73 (0.57-1.11) mg/dL Glucose 150 H (70-99) mg/dL Calcium 8.4 L (8.6-10.8) mg/dL Calcium panel 08/24/17 Range/Units 05:23 Calcium 8.4 L (8.6-10.8) mg/dL Pituitary panel 08/24/17 Range/Units 05:23 Sodium 140 (136-145) mEq/L Potassium 3.2 L (3.5-4.5) mEq/L Chloride 107 (98-109) mEq/L Carbon Dioxide 27 (19-29) mEq/L BUN 9 (7-20) mg/dL Creatinine 0.73 (0.57-1.11) mg/dL Glucose 150 H (70-99) mg/dL Calcium 8.4 L (8.6-10.8) mg/dL Adrenal panel 08/24/17 Range/Units 05:23 Sodium 140 (136-145) mEq/L Potassium 3.2 L (3.5-4.5) mEq/L Chloride 107 (98-109) mEq/L Carbon Dioxide 27 (19-29) mEq/L BUN 9 (7-20) mg/dL Creatinine 0.73 (0.57-1.11) mg/dL Glucose 150 H (70-99) mg/dL Calcium 8.4 L (8.6-10.8) mg/dL - Attending Attestation I examined this patient and my medical decision-making was reviewed with the Resident Physician. I agree with the documented findings, disposition and treatment plan as described except to the extent set forth below.
[2017-08-23] MEDS ORDERED: Magnesium Sulfate 2 GM in D5% in Water 100 ML IVPB ONE (10:02)
[2017-08-23] MEDS: Furosemide 40 MG TABLET PO SCH (11:39)
[2017-08-23] MEDS: Nystatin POWDER 30 GM BOTTLE TP SCH (21:28)
[2017-08-24] MEDS: *HR* Metoprolol 5 MG/5 ML VIAL IVP SCH ×2 (00:15→05:39)
[2017-08-24] MEDS: Insulin LISPRO 300 UNITS/3 ML VIAL SQ SCH ×3 (00:15→11:31)
[2017-08-24 06:00] LABS: Hemoglobin 11.5 g/dL (11.5-15.4); Monocytes % 10.3 %
[2017-08-24 06:02] LABS: Basophils % 0.8 %; Eosinophils # 0.1 K/mcL (0.0-0.6); Eosinophils % 4.6 %; Hematocrit 33.8 % (35.3-44.9); Immature Granulocytes % 0.8 % (0-4); Immature Platelets 7.4 % (1.1-6.1); Lymphocytes # 0.6 K/mcL (0.6-4.6); Lymphocytes % 24.5 %; Mean Corpuscular Hemoglobin 30.5 pg (28.0-33.3); Mean Corpuscular Volume 89.7 fL (83.0-100.0); Mean Platelet Volume 11.8 fL (9.4-12.4); Monocytes # 0.3 K/mcL (0.0-1.3); Neutrophils # 1.5 K/mcL (1.6-8.9); Red Blood Count 3.77 M/mcL (3.82-4.97); Red Cell Distribution Width 13.6 % (11.5-14.5)
[2017-08-24 06:03] LABS: Platelet Count 52 K/mcL (140-400)
[2017-08-24 06:15] LABS: BUN/Creatinine Ratio 12 (6-26); Blood Urea Nitrogen 9 mg/dL (7-20); Calcium 8.4 mg/dL (8.6-10.8); Carbon Dioxide 27 mEq/L (19-29); Chloride 107 mEq/L (98-109); Glucose 150 mg/dL (70-99); Magnesium 1.4 mg/dL (1.6-2.6); Osmolality,Calculated 292 (280-300); Potassium 3.2 mEq/L (3.5-4.5); Sodium 140 mEq/L (136-145); eGFR For African Americans > 60 (> 60); eGFR For Non-African Americans > 60 (> 60)
[2017-08-24] MEDS: *HR* Heparin 5,000 UNIT/ML VIAL SQ SCH (06:40)
[2017-08-24] MEDS: Nystatin POWDER 30 GM BOTTLE TP SCH ×2 (07:34→14:00)
[2017-08-24] MEDS: Furosemide 40 MG TABLET PO SCH (07:35)
[2017-08-24] MEDS: Pantoprazole 40 MG VIAL IVP SCH (07:35)
[2017-08-24] MEDS ORDERED: *HR* GlipiZIDE 5 MG TABLET PO SCH (09:00)
[2017-08-24] MEDS ORDERED: Magnesium Oxide 400 MG TABLET PO ONE (10:26)
--- NOTE | 2017-08-24 10:27 | Discharge Summary ---
Date of Encounter: 08/24/17 Time of Encounter: 09:45 - Discharge Diagnosis (1) Small bowel obstruction Priority: Primary Status: Resolved (2) Abdominal pain Priority: Primary Status: Resolved Qualifiers: Abdominal location: generalized Qualified Code(s): R10.84 - Generalized abdominal pain (3) Hypokalemia Priority: Secondary Status: Acute (4) HTN (hypertension) Priority: Secondary Status: Chronic Qualifiers: Hypertension type: essential hypertension Qualified Code(s): I10 - Essential (primary) hypertension (5) Diabetes mellitus Priority: Secondary Status: Chronic Qualifiers: Diabetes mellitus type: type 2 Diabetes mellitus complication status: without complication Diabetes mellitus termite helper insulin use: without termite helper use Qualified Code(s): E11.9 - Type 2 diabetes mellitus without complications (6) Chronic idiopathic thrombocytopenia Priority: Secondary Status: Chronic (7) Hypomagnesemia Priority: Secondary Status: Acute (8) Diarrhea Priority: Secondary Status: Acute Qualifiers: Diarrhea type: unspecified type Qualified Code(s): R19.7 - Diarrhea, unspecified (9) Cutaneous candidiasis Priority: Secondary Status: Acute (10) Rectocele Priority: Secondary Status: Acute - Discharge Medications Prescriptions: Nystatin POWDER [Nystop] 1 appl TP TID #1 bottle Potassium Chloride 10 meq PO DAILY #14 tab.er.[email or web address] Home Medications: Cholecalciferol (D-3) [Vitamin D] 1,000 unit PO DAILY 05/29/16 [History] Furosemide [Lasix] 40 mg PO DAILY 30 Days tablet 10/20/16 [Rx] Propranolol HCl 40 mg PO BID 08/20/17 [History] Spironolactone [Aldactone] 50 mg PO DAILY 08/20/17 [History] glipiZIDE [Glucotrol] 5 mg PO DAILY 08/20/17 [History] Nystatin POWDER [Nystop] 1 appl TP TID #1 bottle 08/24/17 [Rx] Potassium Chloride 10 meq PO DAILY #14 tab.er.prt 08/24/17 [Rx] Allergies/Adverse Reactions: 3 Allergy/AdvReac Type Severity Reaction Status Date / Time meperidine Allergy Rash Verified 10/19/16 11:44 General Surgery Exam Initial Vital Signs Temp Pulse Resp BP Pulse Ox 97.2 F L 70 15 108/65 96 08/20/17 23:04 08/20/17 23:04 08/20/17 23:04 08/20/17 23:04 08/20/17 23:04 - General physical appearance well developed, well nourished, no distress, no pain - Eyes normal ocular movement - ENT normal mucosa, atraumatic, normocephalic - Neck trachea midline - Respiratory normal expansion, normal respiratory effort, clear to auscultation - Cardiovascular Cardiovascular exam: Present: RRR - Abdomen Abdomen general surgery: Present: bowel sounds present, soft, non tender - Rectum Rectum: Present: other (rectocele) - Integumentary Integumentary general surgery: Present: warm and dry - Neurologic Present: CN 2-12 grossly intact - Musculoskeletal Present: normal gait, normal posture - Psychiatric Psychiatric general surgery: Present: appropriate, oriented to person, oriented to place, oriented to time, speech is normal, memory intact Date of admission: 08/20/17 20:01 Primary care physician: Germaine Herring CNP Consults: 08/21/17 00:35 Consult to Pastoral Services [CONS] Routine Comment: Discharging clinician: Kristen Freeman ([facility]) Anticipated date of discharge: 08/24/17 - Patient Status Disposition: Home, Self-Care Condition: Good Functional capacity at discharge: independent ambulation Overall status at discharge: patient is progressing back to baseline - Discharge Instructions Follow Up With: Westley De Jesus MD [Partnered Physician] - (please make patient appointment to be seen for rectocele; 2 weeks) Kristen Freeman MD [Partnered Physician] - 09/15/17 9:35 am (hospital follow- up) Germaine Herring CNP [Primary Care Provider] - (1 week hospital follow-up) - Diet and Activity Activity: increase activity as tolerated Diet: advance to your usual diet - Hospital Course Hospital course: Ms. Stuart is a 77 year old female presented to the hospital with complaints of abdominal pain. Her radiologic imaging was concerning for small bowel obstruction. The patient was treated conservatively with bowel rest and IV fluids for hydration. Her symptoms resolved with conservative measures and she was started on a clear liquid diet. She tolerated this well and advanced to a full liquid diet. She she has continued to have bowel function and IS passing flatus. Her abdominal pain has resolved. She did have a urine culture complete during her hospitalization which showed no growth of bacteria. She was treated with nystatin powder for a yeast infection in her abdominal skin folds. She does have a rectocele and we will have her follow-up follow-up with Dr. De Jesus outpatient for evaluation and recommendations. She will follow-up with Dr. Freeman the next 3-4 weeks. - Time Spent with Patient Total time spent providing and/or coordinating discharge services: Less than 30 minutes Labs on day of discharge: Labs from last 24 hours 08/24/17 08/24/17 08/24/17 05:23 05:23 05:02 WBC 2.6 L RBC 3.77 L Hgb 11.5 Hct 33.8 L MCV 89.7 MCH 30.5 MCHC 34.0 RDW 13.6 Plt Count 52 L MPV 11.8 Immature Gran % 0.8 Seg Neutrophils % 59.0 Lymphocytes % 24.5 Monocytes % 10.3 Eosinophils % 4.6 Basophils % 0.8 Neutrophils # 1.5 L Lymphocytes # 0.6 Monocytes # 0.3 Eosinophils # 0.1 Basophils # 0.0 Immature Plt Fraction 7.4 H Sodium 140 Potassium 3.2 L Chloride 107 Carbon Dioxide 27 BUN 9 Creatinine 0.73 Est GFR ( Amer) > 60 Est GFR (Non-Af Amer) > 60 BUN/Creatinine Ratio 12 Glucose 150 H POC Glucose 133 H Calculated Osmolality 292 Calcium 8.4 L Magnesium 1.4 L Stool Occult Blood 08/23/17 08/23/17 08/23/17 23:09 18:40 16:56 WBC RBC Hgb Hct MCV MCH MCHC RDW Plt Count MPV Immature Gran % Seg Neutrophils % Lymphocytes % Monocytes % Eosinophils % Basophils % Neutrophils # Lymphocytes # Monocytes # Eosinophils # Basophils # Immature Plt Fraction Sodium Potassium Chloride Carbon Dioxide BUN Creatinine Est GFR ( Amer) Est GFR (Non-Af Amer) BUN/Creatinine Ratio Glucose POC Glucose 207 H 150 H Calculated Osmolality Calcium Magnesium Stool Occult Blood Positive A 08/23/17 11:00 WBC RBC Hgb Hct MCV MCH MCHC RDW Plt Count MPV Immature Gran % Seg Neutrophils % Lymphocytes % Monocytes % Eosinophils % Basophils % Neutrophils # Lymphocytes # Monocytes # Eosinophils # Basophils # Immature Plt Fraction Sodium Potassium Chloride Carbon Dioxide BUN Creatinine Est GFR ( Amer) Est GFR (Non-Af Amer) BUN/Creatinine Ratio Glucose POC Glucose 269 H Calculated Osmolality Calcium Magnesium Stool Occult Blood - Impressions ITS Impressions KUB X-Ray 09/30/17 08:46 IMPRESSION: 1. The orogastric tube tip is located in the the gastric antrum. D/ / Akshat Davidson MD / Akshat Davidson MD Interpreting Provider: Akshat Davidson MD Abdomen X-Ray 08/22/17 12:31 IMPRESSION: 1. Minimally abnormal bowel gas pattern with mild gaseous distention of few loops of small bowel in the right mid/lower abdomen. No plain film findings to suggest presence of significant bowel obstruction. 2. Nasogastric tube in place with distal tip located in the region of the pyloric antrum. D/ / 08/22/2017 13:16:36 Anson Nava MD / Wendy Emmanuel Interpreting Provider: Anson Nava MD Small Bowel X-Ray 08/22/17 14:33 IMPRESSION: Normal small bowel transit time. Persistent mildly dilated distal small bowel loops. D/ / Chato Asencio MD / Chato Asencio MD Interpreting Provider: Chato Asencio MD - Attending Attestation For this encounter, I have reviewed the CERTIFIED MASTER SAFE TECHNICIAN or PA documentation, treatment plan, and medical decision making; and I have had face to face time with this patient.
[2017-08-24 15:26] VITALS: BP 127/79
== END 2017-08-24 16:07 | disposition home or self-care (01) | DRG 389 ==
LOC: 3ANU
PROVIDERS: ADMIT Surgery; ATTEND Surgery

== ENCOUNTER 2018-10-05 09:00 | Observation (INO) ==
[2018-10-05 09:40] LABS: Basophils % 0.7 %; Eosinophils # 0.1 K/mcL (0.0-0.6); Eosinophils % 3.1 %; Hematocrit 37.8 % (35.3-44.9); Hemoglobin 12.8 g/dL (11.5-15.4); Immature Granulocytes % 0.3 % (0-4); Immature Platelets 9.7 % (1.1-6.1); Lymphocytes # 0.5 K/mcL (0.6-4.6); Lymphocytes % 17.4 %; Mean Corpuscular HGB Conc 33.9 g/dL (31.6-35.5); Mean Corpuscular Hemoglobin 30.2 pg (28.0-33.3); Mean Corpuscular Volume 89.2 fL (83.0-100.0); Mean Platelet Volume 13.1 fL (9.4-12.4); Monocytes # 0.3 K/mcL (0.0-1.3); Monocytes % 11.5 %; Neutrophils # 1.9 K/mcL (1.6-8.9); Platelet Count 39 K/mcL (140-400); Red Blood Count 4.24 M/mcL (3.82-4.97); Red Cell Distribution Width 13.9 % (11.5-14.5)
--- NOTE | 2018-10-05 09:43 | Emergency Department Note ---
Disposition Clinical Impression: Delirium due to general medical condition Disposition: Still a Patient Referrals: Caroline Mayen CNP [Primary Care Provider] - General Adult HPI - General Chief complaint: ED Altered Mental Status Stated complaint: "confusion" Time Seen by Provider: 10/05/18 09:08 Source: patient, family Limitations: no limitations Nursing Notes Reviewed: Yes Vital Signs Reviewed: Yes - History of Present Illness HPI Narrative: Attestation note ED attending note I examined this patient and my medical decision-making was reviewed with the emergency medicine resident Dr.KURT RAINEY. I agree with the documented findings, disposition and treatment plan as described except to the extent set forth below. Briefly: 78-year-old female diagnosed with liver cancer at [facility]. Was admitted this past discharged Wednesday. at bedside noted that she was having confusion. No recent trauma. He says that she has not been acting herself. She is not on blood thinners. We are asking the old medical records from [facility] for review for a focused evaluation. Patient will get screening labs here. And EKG. Admission and transfer is anticipated. With the family members note that this is a possibility. Providing 45 minutes of critical care service this patient. Patient is able to at least follow simple commands has a patent airway and is stable vital signs. Pain Scale: 0 - Related Data Home Medications Medication Instructions Recorded Confirmed Cholecalciferol (D-3) [Vitamin D] 1,000 unit PO DAILY 05/29/16 09/29/18 Propranolol HCl 40 mg PO BID 08/20/17 09/29/18 Sitagliptin Phosphate [Januvia] 50 mg PO DAILY 09/29/18 09/29/18 glipiZIDE [Glucotrol] 5 mg PO 0800 09/29/18 09/29/18 Previous Rx's Medication Instructions Recorded Furosemide [Lasix] 40 mg PO DAILY 30 Days tablet 10/20/16 Allergies Allergy/AdvReac Type Severity Reaction Status Date / Time meperidine Allergy Rash Verified 10/05/18 09:12 Past Medical History - Past Medical History Medical history: Reports: cancer, CHF, diabetes, hypertension, kidney stones Surgical history: Reports: other (paracentesis) Psychiatric history: Reports: anxiety, depression WEASAND TRIMMER history: Reports: no WEASAND TRIMMER history - Social History Smoking Status: Never smoker Smokeless Tobacco Status: No Alcohol use: Reports: none Drug use: Reports: none Physical Exam - General Limitations: no limitations General appearance: alert, in no apparent distress Course Vital Signs Temperature 98.1 F 10/05/18 09:05 Pulse Rate 76 10/05/18 09:05 Respiratory Rate 16 10/05/18 09:05 Blood Pressure 135/71 10/05/18 09:05 O2 Sat by Pulse Oximetry 99 10/05/18 09:05 Temperature 98.1 F 10/05/18 09:11 Pulse Rate 76 10/05/18 09:11 Respiratory Rate 16 10/05/18 09:11 Blood Pressure 135/71 10/05/18 09:11 O2 Sat by Pulse Oximetry 99 10/05/18 09:11 Oxygen Delivery Oxygen Delivery Room Air
[2018-10-05 09:46] LABS: INR 1.4; Prothrombin Time 16.1 Seconds (9.4-12.1)
[2018-10-05 09:49] LABS: Activated Partial Thrombo Time 29.9 Seconds (26.0-36.0)
[2018-10-05 09:59] LABS: Troponin I < 0.03 ng/mL (< 0.04)
--- NOTE | 2018-10-05 09:59 | Emergency Department Note ---
Disposition Clinical Impression: Delirium due to general medical condition, Hepatic encephalopathy Disposition: Admitted As Inpatient Condition: Fair Referrals: Caroline Mayen, HAROLDO [Primary Care Provider] - Forms: ED Satisfaction Letter Time of Disposition: 12:07 Altered Mental Status HPI - General Chief Complaint: ED Altered Mental Status Stated Complaint: "confusion" Time Seen by Provider: 10/05/18 09:08 Source: patient, family Limitations: no limitations Nursing Notes Reviewed: Yes Vital Signs Reviewed: Yes - History of Present Illness HPI Narrative: 78-year-old female presents from home with daughter bedside for evaluation of confusion. Patient was seen at outside hospital 6 days ago in transfer to [place] where she was diagnosed with hepatic cirrhosis and liver cancer. No additional details renal be provided regarding the patient's liver cancer. She has a history of ascites which is required paracentesis 1 in the past. He was discharged from [place] this past weekend with recommendation that she follow up with the oncology center locally. Patient lives at home and she does have home health. Patient's daughter notes that 2 days ago, she was altered which she describes as not knowing her name and not knowing her location. Specific example provided was at the patient requested to eat at [employer] and, when taken [employer], was are diminutive stating that she was at [email or web address] [facility] and not at [employer]. One day ago, patient continued to be altered however was waxing and waning in her course. Home health recommended to the daughter the patient brought to emergency department for evaluation of her waxing and waning confusion as well as in the hopes that the emergency department could schedule follow-up with oncology locally. At this time, patient has no complaints and feels at her baseline. She does note, however, that she has mild dyspnea with exertion however it is unchanged from her normal. PMH: CHF; denies history of [place] or ACS. Diabetes mellitus type 2 on oral anti- hyperglycemics. Hypertension. No history of alcoholism or alcohol abuse. No history of COPD. No history of CVA, TIA, seizure disorder. ROS: Positive: As above Negative: Fever, chills, nausea, vomiting, chest pain, palpitations, abdominal pain, diarrhea, constipation, dysuria. - Related Data Home Medications Medication Instructions Recorded Confirmed Cholecalciferol (D-3) [Vitamin D] 1,000 unit PO DAILY 05/29/16 10/05/18 Propranolol HCl 40 mg PO BID 08/20/17 10/05/18 glipiZIDE [Glucotrol] 5 mg PO 0800 09/29/18 10/05/18 Pantoprazole Sodium 40 mg PO DAILY 10/05/18 10/05/18 SitaGLIPtin [Januvia] 100 mg PO DAILY 10/05/18 10/05/18 Spironolactone 50 mg PO DAILY 10/05/18 10/05/18 Previous Rx's Medication Instructions Recorded Furosemide [Lasix] 40 mg PO DAILY 30 Days tablet 10/20/16 Allergies Allergy/AdvReac Type Severity Reaction Status Date / Time meperidine Allergy Rash Verified 10/05/18 09:12 All systems ED: reviewed and negative except as stated. Review of Systems: As Per HPI Past Medical History - Past Medical History Medical history: Reports: cancer, CHF, diabetes, hypertension, kidney stones Surgical history: Reports: other (paracentesis) Psychiatric history: Reports: anxiety, depression POCKET MAKER history: Reports: no POCKET MAKER history - Social History Smoking Status: Never smoker Smokeless Tobacco Status: No Alcohol use: Reports: none Drug use: Reports: none Physical Exam Vital Signs Reviewed General: Patient is alert, oriented, and in no acute distress. Head: atraumatic, normocephalic Eye: normal appearance, PERRL, EOMI, no scleral icterus, no conjunctival inje ction ENT: mucous membranes moist, normal external ear exam Neck: normal inspection, trachea midline, full ROM Chest: normal inspection, symmetric chest rise Respiratory: Good respiratory effort. Bilateral breath sounds are clear without wheezing, crackles, or rhonchi. Cardiovascular: Regular rate and rhythm. No clicks, rubs, gallops, or murmors. Normal heart sounds. Abdomen: Bowel sounds present normoactive. Abdomen is soft, nondistended, and nontender. No guarding or rebound. Musculoskeletal: Spontaneously moving all extremities. Skin: warm, dry, intact. Neuro: GCS 15 Alert and oriented x4-specifically name, date of , year, location. She does incorrectly believe is October however correctly knows that the date is the 14. Sensation light touch intact. Psych: Patient's affect is appropriate for situation. - General Limitations: no limitations General appearance: alert, in no apparent distress Course Course Narrative: I discussed with the patient and daughter bedside that the emergency department is unable to schedule outpatient appointments with the oncology center. Will perform evaluation for possible infectious or metabolic causes of her altered me ntation. No indication at this time for CT head as patient is neurologically intact and symmetric at this time. EKG dated 10/05/18 at 09:15 interpreted as sinus rhythm with rate of 74. MD 150, QRS 137, QTC 479. Normal axis. Nonspecific ST-T changes. Right bundle branch block. Right anterior fascicular block. Nonspecific ST-T changes. Compared to previous dated 09/29/2018 showing no acute ischemic changes or comparison. Documentation received from [facility] regarding the patient's recent admission. She was diagnosed with hepatocellular carcinoma. She was seen by oncology at locally. that facility. Then MRI liver demonstrated hepatic mass with large occlusive thrombus in portal vein, splenic vein, and superior mesenteric vein. Anticoagulation was not recommended by the consultants. She was discharged home on the and [place] cancer navigator recommended close follow-up locally. Laboratory work shows AFP tumor marker 2.6. CA 19-19 was 20.6. On reevaluation, patient continues to be GCS 15 and awake, alert and oriented 4. Lab work is concerning for elevation in pneumonia at 96. There is no historian value for comparison just this is unknown if this is acute versus chronic. Chest x-ray is unremarkable. EKG is unremarkable. Urinalysis is not concerning for UTI. I discussed the above the patient and her daughter at bedside. They are agreeable to admission at this facility for continued evaluation of the patient's confusion, elevated pneumonia. They are hoping to establish contact with the [place] oncology practice. I discussed the above with the admitting hospitalist, Dr. Garcia, who agrees to accept the patient for continued by. Monitoring. Patient has been provided 20 g lactulose. Vital Signs Temperature 98.1 F 10/05/18 09:05 Pulse Rate 76 10/05/18 09:05 Respiratory Rate 16 10/05/18 09:05 Blood Pressure 135/71 10/05/18 09:05 O2 Sat by Pulse Oximetry 99 10/05/18 09:05 Temperature 98.1 F 10/05/18 09:11 Pulse Rate 67 10/05/18 10:51 Respiratory Rate 18 10/05/18 10:51 Blood Pressure 132/72 10/05/18 10:51 O2 Sat by Pulse Oximetry 100 10/05/18 10:51 Oxygen Delivery Oxygen Delivery Room Air Altered Mental Status - Lab Data Result diagrams: 10/05/18 09:25 10/05/18 09:25 Lab Results 10/05/18 10/05/18 10/05/18 Range/Units 09:25 09:25 09:25 WBC 2.9 L (4.3-11.1) K/mcL RBC 4.24 (3.82-4.97) M/mcL Hgb 12.8 (11.5-15.4) g/dL Hct 37.8 (35.3-44.9) % MCV 89.2 (83.0-100.0) fL MCH 30.2 (28.0-33.3) pg MCHC 33.9 (31.6-35.5) g/dL RDW 13.9 (11.5-14.5) % Plt Count 39 L (140-400) K/mcL MPV 13.1 H (9.4-12.4) fL Immature Gran % 0.3 (0-4) % Seg Neutrophils % 67.0 % Lymphocytes % 17.4 % Monocytes % 11.5 % Eosinophils % 3.1 % Basophils % 0.7 % Neutrophils # 1.9 (1.6-8.9) K/mcL Lymphocytes # 0.5 L (0.6-4.6) K/mcL Monocytes # 0.3 (0.0-1.3) K/mcL Eosinophils # 0.1 (0.0-0.6) K/mcL Basophils # 0.0 (0.0-0.2) K/mcL Immature Plt Fraction 9.7 H (1.1-6.1) % PT 16.1 H (9.4-12.1) Seconds INR 1.4 APTT 29.9 (26.0-36.0) Seconds Sodium 134 L (136-145) mEq/L Potassium 4.4 (3.5-5.1) mEq/L Chloride 103 (98-107) mEq/L Carbon Dioxide 24 (23-29) mEq/L BUN 17 (8-23) mg/dL Creatinine 1.01 (0.60-1.20) mg/dL Est GFR ( Amer) > 60 (> 60) Est GFR (Non-Af Amer) 53 L (> 60) BUN/Creatinine Ratio 17 (6-26) Glucose 364 H (70-105) mg/dL POC Glucose (70-99) mg/dL Calculated Osmolality 294 (280-300) Calcium 9.5 (8.6-10.3) mg/dL Total Bilirubin 1.2 H (0.3-1.0) mg/dL Direct Bilirubin 0.3 H (0.0-0.2) mg/dL Indirect Bilirubin 0.9 (0.0-1.2) mg/dL AST 69 H (13-39) Units/L ALT 32 (7-52) Units/L Alkaline Phosphatase 195 H (34-104) Units/L Ammonia (16-53) mcmol/L Troponin I < 0.03 (< 0.04) ng/mL Serum Total Protein 7.4 (6.4-8.9) g/dL Albumin 3.2 L (3.5-5.7) g/dL Globulin 4.2 H (2.4-3.5) g/dL Albumin/Globulin Ratio 0.8 L (1.1-2.2) TSH 4.558 (0.340-5.600) mcIU/mL Urine Color (Yellow) Urine Clarity (Clear) Urine pH (5.0-8.0) pH Units Ur Specific [place] (1.010-1.025) Urine Protein (Neg-Trace) mg/dL Urine Glucose (UA) (Normal) mg/dL Urine Ketones (Negative) mg/dL Urine Blood (Negative) Urine Nitrite (Negative) Urine Bilirubin (Negative) Urine Urobilinogen (Normal) mg/dL Ur Leukocyte Esterase (Negative) Urine Microscopic RBC (0-3) per hpf Urine Microscopic WBC (0-3) per hpf Ur Squamous Epith Cells (None-Few) per lpf Urine Bacteria (None-Few) per hpf Hyaline Casts (None-Few) per lpf Ur Culture Indicated? (NO) 10/05/18 10/05/18 10/05/18 Range/Units 09:25 10:05 10:46 WBC (4.3-11.1) K/mcL RBC (3.82-4.97) M/mcL Hgb (11.5-15.4) g/dL Hct (35.3-44.9) % MCV (83.0-100.0) fL MCH (28.0-33.3) pg MCHC (31.6-35.5) g/dL RDW (11.5-14.5) % Plt Count (140-400) K/mcL MPV (9.4-12.4) fL Immature Gran % (0-4) % Seg Neutrophils % % Lymphocytes % % Monocytes % % Eosinophils % % Basophils % % Neutrophils # (1.6-8.9) K/mcL Lymphocytes # (0.6-4.6) K/mcL Monocytes # (0.0-1.3) K/mcL Eosinophils # (0.0-0.6) K/mcL Basophils # (0.0-0.2) K/mcL Immature Plt Fraction (1.1-6.1) % PT (9.4-12.1) Seconds INR APTT (26.0-36.0) Seconds Sodium (136-145) mEq/L Potassium (3.5-5.1) mEq/L Chloride (98-107) mEq/L Carbon Dioxide (23-29) mEq/L BUN (8-23) mg/dL Creatinine (0.60-1.20) mg/dL Est GFR ( Amer) (> 60) Est GFR (Non-Af Amer) (> 60) BUN/Creatinine Ratio (6-26) Glucose (70-105) mg/dL POC Glucose 343 H (70-99) mg/dL Calculated Osmolality (280-300) Calcium (8.6-10.3) mg/dL Total Bilirubin (0.3-1.0) mg/dL Direct Bilirubin (0.0-0.2) mg/dL Indirect Bilirubin (0.0-1.2) mg/dL AST (13-39) Units/L ALT (7-52) Units/L Alkaline Phosphatase (34-104) Units/L Ammonia 96 H (16-53) mcmol/L Troponin I (< 0.04) ng/mL Serum Total Protein (6.4-8.9) g/dL Albumin (3.5-5.7) g/dL Globulin (2.4-3.5) g/dL Albumin/Globulin Ratio (1.1-2.2) TSH (0.340-5.600) mcIU/mL Urine Color Yellow (Yellow) Urine Clarity Clear (Clear) Urine pH 6.0 (5.0-8.0) pH Units Ur Specific [place] 1.022 (1.010-1.025) Urine Protein Negative (Neg-Trace) mg/dL Urine Glucose (UA) >=1000 H (Normal) mg/dL Urine Ketones Negative (Negative) mg/dL Urine Blood Negative (Negative) Urine Nitrite Negative (Negative) Urine Bilirubin Negative (Negative) Urine Urobilinogen Normal (Normal) mg/dL Ur Leukocyte Esterase Small H (Negative) Urine Microscopic RBC 0-3 (0-3) per hpf Urine Microscopic WBC 5-15 H (0-3) per hpf Ur Squamous Epith Cells Many H (None-Few) per lpf Urine Bacteria Moderate H (None-Few) per hpf Hyaline Casts None Seen (None-Few) per lpf Ur Culture Indicated? NO. A (NO) TPA Checklist - LKW: 3-4.5 hrs Add. Warnings/Precautions Patient/family understanding: The patient/family members have been counseled and understood the risk, benefit, and alternatives of treatment.
[2018-10-05 10:01] LABS: Alanine Aminotransferase 32 Units/L (7-52); Albumin 3.2 g/dL (3.5-5.7); Albumin/Globulin Ratio 0.8 (1.1-2.2); Alkaline Phosphatase 195 Units/L (34-104); Aspartate Amino Transferase 69 Units/L (13-39); BUN/Creatinine Ratio 17 (6-26); Bilirubin,Direct 0.3 mg/dL (0.0-0.2); Bilirubin,Indirect 0.9 mg/dL (0.0-1.2); Bilirubin,Total 1.2 mg/dL (0.3-1.0); Blood Urea Nitrogen 17 mg/dL (8-23); Calcium 9.5 mg/dL (8.6-10.3); Carbon Dioxide 24 mEq/L (23-29); Chloride 103 mEq/L (98-107); Globulin 4.2 g/dL (2.4-3.5); Glucose 364 mg/dL (70-105); Osmolality,Calculated 294 (280-300); Potassium 4.4 mEq/L (3.5-5.1); Sodium 134 mEq/L (136-145); Total Protein 7.4 g/dL (6.4-8.9); eGFR For Non-African Americans 53 (> 60)
[2018-10-05 10:13] LABS: Thyroid Stimulating Hormone 4.558 mcIU/mL (0.340-5.600)
[2018-10-05 10:56] LABS: Bilirubin,Urine Negative (Negative); Blood,Urine Negative (Negative); Clarity,Urine Clear (Clear); Color,Urine Yellow (Yellow); Glucose,Urine (UA) >=1000 mg/dL (Normal); Ketones,Urine Negative (Negative); Leukocyte Esterase,Urine Small (Negative); Nitrite,Urine Negative (Negative); Protein,Urine Negative (Neg-Trace); Specific Gravity,Urine 1.022 (1.010-1.025); Urobilinogen,Urine Normal (Normal)
[2018-10-05 10:57] LABS: Bacteria,Urine Moderate per hpf (None-Few); Hyaline Casts,Urine None Seen per lpf (None-Few); RBC,Urine 0-3 per hpf (0-3); Squamous Epithelial Cell,Urine Many per lpf (None-Few)
[2018-10-05] MEDS ORDERED: Lactulose Oral Soln 20 GM/30 ML UDC PO ONE (11:54)
[2018-10-05] MEDS ORDERED: Naloxone 0.4 MG/ML INJ IVP PRN (13:37)
[2018-10-05] MEDS ORDERED: Acetaminophen 325 MG TABLET PO PRN (13:37)
[2018-10-05] MEDS ORDERED: *HR* HYDROcodone/Acet 5/325 mg TABLET PO PRN (13:37)
[2018-10-05] MEDS ORDERED: *HR* OxyCODONE Immed Rel 5 MG TABLET PO PRN ×2 (13:37→14:25)
[2018-10-05] MEDS ORDERED: D5% in Water 1,000 ML IVC PRN (13:39)
[2018-10-05] MEDS ORDERED: *HR* Dextrose 50 % in Water (Syg) 50 ML SYRINGE IVP PRN (13:39)
[2018-10-05] MEDS ORDERED: Dextrose Gel 15 GM/37.5 ML TUBE PO PRN ×2 (13:39)
--- NOTE | 2018-10-05 13:45 | Internal Med History&Physical ---
Date of Encounter: 10/05/18 Time of Encounter: 14:18 Internal Medicine - H&P: HPI Chief complaint: I was confused Admitted From: Home Plans for Post Hospital Care: Home History of present illness: Ms. 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 She also reports she was told she was confused this mrn. She is very coherent, alert, awake and oriented X3, she was recently discharged from [facility] on 10/01 following a 2days stay for work up for new liver mass with associated portal, splenic and mesenteric vein thrombosis. According to the patient, multiple work us and imaging were done and a biopsy was not recommended, she was encouraged to follow up with a local oncologist At time of review, she has no complains, no SOB, CP, fever, chills, leg swelling, no nausea or vomiting or diarrhea, the patient reports having at least 1 bowel movement daily at home. She denies fever or chills, no respiratory symptoms. No genitourinary symptoms. According to documentation from [place], She was diagnosed with hepatocellular carcinoma. She was seen by oncology at that facility. Then MRI liver demonstrated hepatic mass with large occlusive thrombus in portal vein, splenic vein, and superior mesenteric vein. Anticoagulation was not recommended by the consultants. She was discharged home on the and [place] cancer navigator recommended close follow-up locally. Laboratory work shows AFP tumor marker 2.6. CA 19-19 was 20.6. Workup in the ER today shows ammonia level of 96, transaminitis with alcoholic present illness this 69, aortic 22, chronic thrombocytopenia with platelet count of 39,000, chronic leukopenia at baseline, TSH normal 4.5, coagulation panel unremarkable INR 1.4, urinalysis with positive leukocyte esterase culture by reflects, chest x-ray was unremarkable for acute processes. The patient had no neurologic deficits and was not confused at time of evaluation, therefore head imaging is not indicated at this time. She has no advance directives and she is full code. She will be placed on observation for encephalopathy, which seems to have resolved and for evaluation by oncology for her hepatocellular carcinoma Past Med Surg Social Fam HX - Past Medical History Medical history: cancer, CHF, diabetes, hypertension, kidney stones Additional medical history: Liver Cancer Psychiatric history: anxiety, depression - Past Surgical History Surgical History: other (paracentesis) - Social History Smoking Status: Never smoker Smokeless Tobacco Status: No Alcohol use: none Drug use: none - Family History Mother Hx Family Neurologic Disorders: Yes (alzheimers) Father Family Member Ethnicity: Non- Living Status: Hx Family Cardiac Disorders: Yes (CHF) Hx Family Respiratory Disorders: No Hx Family Cancer: No Hx Family GI Disorders: No Hx Family Endocrine Disorder: No Hx Family Neuromuscular Disorders: No Hx Family Neurologic Disorders: No Hx Family HEENT Disorders: No Hx Family Autoimmune Disorders: No Internal Medicine - H&P: Meds Cholecalciferol (D-3) [Vitamin D] 1,000 unit PO DAILY 05/29/16 [History] Furosemide [Lasix] 40 mg PO DAILY 30 Days tablet 10/20/16 [Rx] Propranolol HCl 40 mg PO BID 08/20/17 [History] glipiZIDE [Glucotrol] 5 mg PO 0800 09/29/18 [History] Pantoprazole Sodium 40 mg PO DAILY 10/05/18 [History] SitaGLIPtin [Januvia] 100 mg PO DAILY 10/05/18 [History] Spironolactone 50 mg PO DAILY 10/05/18 [History] Allergy/AdvReac Type Severity Reaction Status Date / Time meperidine Allergy Rash Verified 10/05/18 09:12 All Systems PM: A 10-system review of systems was performed and is negative for pertinent findings except as documented above in the HPI. - Constitutional Constitutional: as per HPI - EENT Eyes: as per HPI Ears: as per HPI Nose, mouth and throat: as per HPI - Cardiovascular Cardiovascular ROS IM: as per HPI - Respiratory Respiratory: as per HPI - Gastrointestinal Gastrointestinal: as per HPI - Genitourinary Genitourinary: as per HPI - Musculoskeletal Musculoskeletal ROS IM: as per HPI - Integumentary Integumentary IM: as per HPI - Neurological Neurological ROS: as per HPI - Constitutional Vitals: Temp Pulse Resp BP Pulse Ox 98.1 F 67 18 132/72 100 10/05/18 09:11 10/05/18 10:51 10/05/18 10:51 10/05/18 10:51 10/05/18 10:51 General appearance: Present: A&O X 3, morbidly obese, pleasant, no acute distress Exam: Patient is conversant, awake, alert - Head Head exam: Present: atraumatic, normocephalic - Eye Eye exam: Present: PERRL, conjuntiva pink, sclera anicteric Pupils: Present: PERRL - Neck Neck exam general surgery: Present: supple, trachea midline. Absent: l ymphadenopathy - Respiratory Respiratory exam: Present: CTAB. Absent: accessory muscle use, rales, rhonchi, wheezes - Cardiovascular Cardiovascular exam: Present: RRR, +S1, +S2. Absent: diastolic murmur, gallop, rubs, systolic murmur - GI/Abdominal GI/Abdominal exam: Present: normal bowel sounds, soft, no peritoneal signs. Absent: distended, tenderness - Extremities Exam Extremities exam: Present: warm, radial pulses palpable and symmetrical. Absent: calf tenderness, cyanotic, pedal edema - Neurological Exam Neurological exam: Present: alert, CN II-XII intact, oriented X3, no focal deficits. Absent: pronater drift, facial droop, speech deficit - Skin Skin exam: Present: dry, intact Internal Med - H&P Results - Labs CBC & Chem 7: 10/05/18 09:25 10/05/18 09:25 Labs: Short CBC 10/05/18 Range/Units 09:25 WBC 2.9 L (4.3-11.1) K/mcL Hgb 12.8 (11.5-15.4) g/dL Hct 37.8 (35.3-44.9) % Plt Count 39 L (140-400) K/mcL Neutrophils # 1.9 (1.6-8.9) K/mcL BMP 10/05/18 09:25 Sodium 134 L Potassium 4.4 Chloride 103 Carbon Dioxide 24 BUN 17 Creatinine 1.01 Glucose 364 H Calcium 9.5 Cardiac Enzymes 10/05/18 Range/Units 09:25 Troponin I < 0.03 (< 0.04) ng/mL Liver Function 10/05/18 Range/Units 09:25 Total Bilirubin 1.2 H (0.3-1.0) mg/dL Direct Bilirubin 0.3 H (0.0-0.2) mg/dL AST 69 H (13-39) Units/L ALT 32 (7-52) Units/L Alkaline Phosphatase 195 H (34-104) Units/L Albumin 3.2 L (3.5-5.7) g/dL Urine 10/05/18 Range/Units 10:46 Urine Color Yellow (Yellow) Urine Clarity Clear (Clear) Urine pH 6.0 (5.0-8.0) pH Units Ur Specific [place] 1.022 (1.010-1.025) Urine Protein Negative (Neg-Trace) mg/dL Urine Glucose (UA) >=1000 H (Normal) mg/dL - Impressions ITS Impressions Chest X-Ray 10/05/18 09:19 IMPRESSION: No acute cardiopulmonary disease D/ / Margarito Galeano MD / Margarito Galeano MD Interpreting Provider: Margarito Galeano MD - Assessment and plan (1) Hepatic encephalopathy Current Visit: Yes Status: Acute Assessment and plan: Patent with waxing and waning episodes of confusion Not confused at this time Continue lactulose to achieve 3-4 BM daily Ammonia level 96 Continue lasix and spironolactone UA is unremarkable Awake, alert and oriented X3 at this time (2) Portal vein thrombosis Current Visit: Yes Status: Chronic Assessment and plan: CAT scan done 09/29/18 No anticoagulation recommended when patient was transferred to [facility] PLT count 39,000 Continue to monitor (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 Assessment and plan: as above (4) DVT prophylaxis Current Visit: Yes Status: Acute Assessment and plan: SCDs (5) Thrombocytopenia Current Visit: Yes Status: Chronic Assessment and plan: PLT count 39,000, at baseline No evidence of bleeding Type and screen with a.m labs No indication for transfusion at this time (6) Cirrhosis of liver Current Visit: Yes Status: Chronic Assessment and plan: Decompensated, with encephalopathy Continue propanolol, Lasix, spironolactone, No ascites on bed-side USS done by ER Continue to monitor Qualifiers: Hepatic cirrhosis type: unspecified hepatic cirrhosis Ascites presence: with ascites Qualified Code(s): K74.60 - Unspecified cirrhosis of liver; R18.8 - Other ascites (7) Diabetes mellitus Current Visit: Yes Status: Chronic Assessment and plan: SSI FS ACHS ADA diet Qualifiers: Diabetes mellitus type: type 2 Diabetes mellitus mcfp insulin use: without termite renewal inspector use Diabetes mellitus complication status: without complication Qualified Code(s): E11.9 - Type 2 diabetes mellitus without complications (8) HTN (hypertension) Current Visit: Yes Status: Chronic Assessment and plan: continue home meds Qualifiers: Hypertension type: essential hypertension Qualified Code(s): I10 - Essential (primary) hypertension (9) CHF (congestive heart failure) Current Visit: Yes Status: Chronic Assessment and plan: continue home diuretics Qualifiers: Heart failure type: unspecified Heart failure chronicity: chronic Qualified Code(s): I50.9 - Heart failure, unspecified (10) Liver mass Current Visit: Yes Status: Acute Assessment and plan: Oncology consulted and called - Time Spent With Patient Total time spent is greater than 50% in coordination of care (as documented) at patient's floor/unit and/or counseling patient:
--- NOTE | 2018-10-05 17:40 | Oncology Inp Consult Note ---
<Evaristo Starr - Last Filed: 10/05/18 17:47> Date of Encounter: 10/05/18 - Data of Consult Requesting Physician: Patrick Lunsford MD Primary Care Provider: Caroline Mayen - Consult Narrative History of present illness: Ms. Stuart is a 78 year old female Medications and Allergies Cholecalciferol (D-3) [Vitamin D] 1,000 unit PO DAILY 05/29/16 [History] Furosemide [Lasix] 40 mg PO DAILY 30 Days tablet 10/20/16 [Rx] Propranolol HCl 40 mg PO BID 08/20/17 [History] glipiZIDE [Glucotrol] 5 mg PO 0800 09/29/18 [History] Pantoprazole Sodium 40 mg PO DAILY 10/05/18 [History] SitaGLIPtin [Januvia] 100 mg PO DAILY 10/05/18 [History] Spironolactone 50 mg PO DAILY 10/05/18 [History] Lactulose 20 gm PO BID 30 Days #60 udc 10/06/18 [Rx] Allergy/AdvReac Type Severity Reaction Status Date / Time meperidine Allergy Rash Verified 10/05/18 09:12 Oncology - Exam - Constitutional Vitals: Temp Pulse Resp BP Pulse Ox 98.1 F 64 16 148/61 96 10/05/18 09:11 10/05/18 15:06 10/05/18 15:06 10/05/18 15:06 10/05/18 15:06 Oncology - Results Labs: 10/05/18 10/05/18 10/05/18 10:46 10:05 09:25 WBC RBC Hgb Hct MCV MCH MCHC RDW Plt Count MPV Immature Gran % Seg Neutrophils % Lymphocytes % Monocytes % Eosinophils % Basophils % Neutrophils # Lymphocytes # Monocytes # Eosinophils # Basophils # Immature Plt Fraction PT INR APTT Sodium Potassium Chloride Carbon Dioxide BUN Creatinine Est GFR ( Amer) Est GFR (Non-Af Amer) BUN/Creatinine Ratio Glucose POC Glucose 343 H Calculated Osmolality Calcium Total Bilirubin Direct Bilirubin Indirect Bilirubin AST ALT Alkaline Phosphatase Ammonia 96 H Troponin I Serum Total Protein Albumin Globulin Albumin/Globulin Ratio TSH Urine Color Yellow Urine Clarity Clear Urine pH 6.0 Ur Specific [place] 1.022 Urine Protein Negative Urine Glucose (UA) >=1000 H Urine Ketones Negative Urine Blood Negative Urine Nitrite Negative Urine Bilirubin Negative Urine Urobilinogen Normal Ur Leukocyte Esterase Small H Urine Microscopic RBC 0-3 Urine Microscopic WBC 5-15 H Ur Squamous Epith Cells Many H Urine Bacteria Moderate H Hyaline Casts None Seen Ur Culture Indicated? NO. A 10/05/18 10/05/18 10/05/18 09:25 09:25 09:25 WBC 2.9 L RBC 4.24 Hgb 12.8 Hct 37.8 MCV 89.2 MCH 30.2 MCHC 33.9 RDW 13.9 Plt Count 39 L MPV 13.1 H Immature Gran % 0.3 Seg Neutrophils % 67.0 Lymphocytes % 17.4 Monocytes % 11.5 Eosinophils % 3.1 Basophils % 0.7 Neutrophils # 1.9 Lymphocytes # 0.5 L Monocytes # 0.3 Eosinophils # 0.1 Basophils # 0.0 Immature Plt Fraction 9.7 H PT 16.1 H INR 1.4 APTT 29.9 Sodium 134 L Potassium 4.4 Chloride 103 Carbon Dioxide 24 BUN 17 Creatinine 1.01 Est GFR ( Amer) > 60 Est GFR (Non-Af Amer) 53 L BUN/Creatinine Ratio 17 Glucose 364 H POC Glucose Calculated Osmolality 294 Calcium 9.5 Total Bilirubin 1.2 H Direct Bilirubin 0.3 H Indirect Bilirubin 0.9 AST 69 H ALT 32 Alkaline Phosphatase 195 H Ammonia Troponin I < 0.03 Serum Total Protein 7.4 Albumin 3.2 L Globulin 4.2 H Albumin/Globulin Ratio 0.8 L TSH 4.558 Urine Color Urine Clarity Urine pH Ur Specific [place] Urine Protein Urine Glucose (UA) Urine Ketones Urine Blood Urine Nitrite Urine Bilirubin Urine Urobilinogen Ur Leukocyte Esterase Urine Microscopic RBC Urine Microscopic WBC Ur Squamous Epith Cells Urine Bacteria Hyaline Casts Ur Culture Indicated? Consult Discharge Plan - Plan Referrals: [facility] [Provider Group] (WEB REQUEST SENT. Office will call with an appointment date and time if they feel its necessary. If you do not hear from the office please inform your PCP that [facility] recommend a GI referral. Thank you!) Caroline Mayen CNP [Primary Care Provider] - 10/11/18 9:30 am ([facility] recommends a GI referral. Please have PCP contact if they feel it is needed. Thank you!) Evaristo Starr MD [Partnered Physician] - 10/14/18 8:30 am Inpatient Charges Provider: Dr. Souleymane Starr Consult - Inpatient: [id number] - Attending Attestation I examined this patient and my medical decision-making was reviewed with the Advanced Practice Nurse. I agree with the documented findings, disposition and treatment plan as described except to the extent set forth below. Patient diagnosed with HCC and extensive thromboses, including a PV thrombus at [facility]. Appears to be Kathleen Gutierrez C based on encephalopathy, ascites, and labs per records. Will have patient f/u in clinic after discharge and determine goals of care at that time. <Guerline Stevens - Last Filed: 10/06/18 14:56> Date of Encounter: 10/05/18 Time of Encounter: 17:00 Assessment and Plan (1) HCC (hepatocellular carcinoma) Status: Acute Assessment and plan: As detailed in history of present illness MRI of the liver obtained at [facility] that demonstrated a hepatic mass to the posterior right hepatic lobe with satellite nodules noted around this lesion, an additional liver cirrhosis morphology (cirrhosis thought to be caused by PATTEN) and small ascites, along with a large occlusive thrombus in the portal vein, splenic vein and superior mesenteric vein. The liver mass lesion is capital LIRADS-5 for HCCA and therefore no need to biopsy for tissue diagnosis. No imaging available for review, we will request reports, imaging information gathered from chart review She was noted to not be a surgical candidate given underlying cirrhosis concerning for multifocal component. According to [facility] oncology notes by Dr. Pepe recommendation was made for evaluation with interventional radiology for liver directed therapy, as well as potential candidacy for treatment with Nexavar. Patient prefers medical oncology follow-up closer to home as she lives in [place], we will arrange for outpatient follow-up with Dr. Starr Treatment options will be explored on an outpatient basis (2) Portal vein thrombosis Status: Chronic Assessment and plan: Anticoagulation was not recommended secondary to high risk for bleeding with cirrhosis, varices and thrombocytopenia. Continue with symptomatic pain management (3) Thrombocytopenia Status: Chronic Assessment and plan: Secondary to long-standing hepatic cirrhosis Platelet count slightly below baseline at 30K on admission According to laboratory trend platelet count usually trends between 40k-50k No signs and symptoms of active bleeding, hgb stable Refer to above to AC discussion - Data of Consult Patient: new to practice Consult date: 10/05/18 Requesting Physician: Patrick Lunsford MD Primary Care Provider: Caroline Mayen - Consult Narrative Reason for consult: HCC History of present illness: Ms. Stuart is a 78 year old female with past medical history significant for CHFpEF, DM, HTN, PATTEN Cirrhosis with portal HTN, history of chronic portal vein thrombosis diagnosed in 2013, Chronic thrombocytopenia, Obesity. Patient presented to [facility] ER on 10/05/2018 with report of increased confusion. Patient was coherent, alert, awake and oriented 3 upon her presentation. ER workup reveals ammonia level of 96, transaminitis, and thrombocytopenia with a platelet count of 39,000, chronic leukopenia, coagulation panel unremarkable with INR 1.4, UA positive for leukocyte esterase, chest x-ray unremarkable. Patient was recently discharged from [facility] in 10/01/2018 following 2 days stay for workup for a new liver mass with associated portal, splenic and mesenteric venous thrombosis. Ms. Stuart is in the process of referral to our outpatient office, oncology was consulted for further coordination of care. According to [facility] records into our office, Mr. Lisa was admitted and diagnosed with hepatocellular carcinoma. She had an MRI of the liver that demonstrated a hepatic mass to the posterior right hepatic lobe with satellite nodules noted around this lesion, an additional liver cirrhosis morphology (cirrhosis thought to be caused by PATTEN) and small ascites, along with a large occlusive thrombus in the portal vein, splenic vein and superior mesenteric vein. The liver mass lesion is capital LIRADS-5 for HCCA and therefore no need to biopsy for tissue diagnosis. Anticoagulation was not recommended secondary to high risk for bleeding with cirrhosis, varices and thrombocytopenia. According to [facility] oncology notes by Dr. Pepe recommendation was made for evaluation with interventional radiology for liver directed therapy, as well as potential candidacy for treatment with Nexavar. She was noted to not be a surgical candidate given underlying cirrhosis concerning for multifocal component. Patient preferred medical oncology follow-up closer to home as she lives in [place] so she was arranged for outpatient follow-up with our office. Tumor marker labs from [facility] included CEA at 3.14, AFP at 2.16, CA-19-9 at 20.6. The time of assessment, patient is eating dinner and has no physical complaints, review of systems is mostly unremarkable. She does report a history of decreased appetite and nausea occasionally. She has no advance directives and she is full code. She has been admitted to observation for encephalopathy. Past Med Surg Social Fam HX - Past Medical History Medical history: cancer, CHF, diabetes, hypertension, kidney stones Additional medical history: Liver Cancer Psychiatric history: anxiety, depression - Past Surgical History Surgical History: other - Social History Smoking Status: Never smoker Smokeless Tobacco Status: No Alcohol use: none Drug use: none - Family History Mother Hx Family Neurologic Disorders: Yes (alzheimers) Father Family Member Ethnicity: Non- Living Status: Hx Family Cardiac Disorders: Yes (CHF) Hx Family Respiratory Disorders: No Hx Family Cancer: No Hx Family GI Disorders: No Hx Family Endocrine Disorder: No Hx Family Neuromuscular Disorders: No Hx Family Neurologic Disorders: No Hx Family HEENT Disorders: No Hx Family Autoimmune Disorders: No Constitutional: Present: anorexia, fatigue. Absent: chills, fever(s), frequent falls, weakness, weight loss Eyes: Absent: change in vision Nose, mouth and throat: Absent: dysphagia, odynophagia Cardiovascular: Absent: chest pain, palpitations Respiratory: Absent: cough, dyspnea Gastrointestinal: Absent: change in bowel habits, hematemesis, hematochezia, melena, nausea, vomiting Genitourinary: Absent: dysuria Musculoskeletal: Present: muscle weakness Integumentary: Absent: rash, wounds Neurological: Absent: focal weakness, frequent falls Hematologic/Lymphatic: Present: as per HPI Oncology - Exam - Constitutional Vitals: Temp Pulse Resp BP Pulse Ox 98.1 F 64 16 148/61 96 10/05/18 09:11 10/05/18 15:06 10/05/18 15:06 10/05/18 15:06 10/05/18 15:06 General appearance: cooperative, no acute distress, no febrile - Head Head exam: Present: atraumatic - ENT ENT exam: Present: mucous membranes moist - Respiratory Respiratory exam: Present: CTAB. Absent: respiratory distress - Cardiovascular Cardiovascular exam: Present: RRR, +S1, +S2 - GI/Abdominal GI/Abdominal exam: Present: normal bowel sounds, soft. Absent: guarding, rebound, tenderness - Extremities Exam Extremities exam: Present: normal inspection. Absent: calf tenderness - Neurological Exam Neurological exam: Present: alert, oriented X3, no focal deficits, strengths equal and symetr throughout - Psychiatric Psychiatric exam: Present: normal affect, normal mood - Skin Skin exam: Present: dry, intact, normal color, warm
[2018-10-05] MEDS: Insulin LISPRO 300 UNITS/3 ML VIAL SQ SCH ×3 (18:32→21:03)
[2018-10-05] MEDS: Lactulose Oral Soln 20 GM/30 ML UDC PO SCH (20:46)
[2018-10-06 05:04] LABS: Basophils % 0.7 %; Eosinophils # 0.1 K/mcL (0.0-0.6); Eosinophils % 3.2 %; Hematocrit 34.5 % (35.3-44.9); Hemoglobin 11.6 g/dL (11.5-15.4); Immature Granulocytes % 0.4 % (0-4); Lymphocytes # 0.6 K/mcL (0.6-4.6); Lymphocytes % 20.7 %; Mean Corpuscular HGB Conc 33.6 g/dL (31.6-35.5); Mean Corpuscular Volume 89.1 fL (83.0-100.0); Mean Platelet Volume 13.3 fL (9.4-12.4); Monocytes # 0.5 K/mcL (0.0-1.3); Monocytes % 16.1 %; Neutrophils # 1.7 K/mcL (1.6-8.9); Red Blood Count 3.87 M/mcL (3.82-4.97); Red Cell Distribution Width 14.1 % (11.5-14.5); Segmented Neutrophils % 58.9 %
[2018-10-06 05:06] LABS: Platelet Count 38 K/mcL (140-400)
[2018-10-06 05:31] LABS: BUN/Creatinine Ratio 17 (6-26); Blood Urea Nitrogen 15 mg/dL (8-23); Calcium 9.4 mg/dL (8.6-10.3); Carbon Dioxide 25 mEq/L (23-29); Chloride 105 mEq/L (98-107); Glucose 207 mg/dL (70-105); Osmolality,Calculated 289 (280-300); Sodium 136 mEq/L (136-145); eGFR For Non-African Americans > 60 (> 60)
[2018-10-06 07:45] VITALS: BP 120/68
[2018-10-06] MEDS: Lactulose Oral Soln 20 GM/30 ML UDC PO SCH (08:48)
[2018-10-06] MEDS: Insulin LISPRO 300 UNITS/3 ML VIAL SQ SCH ×2 (08:50→12:05)
[2018-10-06] MEDS ORDERED: Cholecalciferol (D-3) 1,000 UNIT TABLET PO SCH (09:00)
[2018-10-06] MEDS ORDERED: Furosemide 40 MG TABLET PO SCH (09:00)
--- NOTE | 2018-10-06 10:18 | Discharge Summary ---
- NOTES TO OUTPATIENT PROVIDER Notes to Outpatient Provider: close follow up with GI and oncology Date of Encounter: 10/06/18 Time of Encounter: 10:23 - Discharge Diagnosis (1) Cirrhosis of liver Priority: Primary Status: Chronic Qualifiers: Hepatic cirrhosis type: unspecified hepatic cirrhosis Ascites presence: with ascites Qualified Code(s): K74.60 - Unspecified cirrhosis of liver; R18.8 - Other ascites (2) HTN (hypertension) Priority: Secondary Status: Chronic Qualifiers: Hypertension type: essential hypertension Qualified Code(s): I10 - Essential (primary) hypertension (3) Diabetes mellitus Priority: Secondary Status: Chronic Qualifiers: Diabetes mellitus type: type 2 Diabetes mellitus assisted insulin use: without extermination inspector use Diabetes mellitus complication status: without complication Qualified Code(s): E11.9 - Type 2 diabetes mellitus without complications (4) DVT prophylaxis Priority: Secondary Status: Acute (5) Liver mass Priority: Secondary Status: Acute (6) Thrombocytopenia Priority: Secondary Status: Chronic (7) Hepatic encephalopathy Priority: Secondary Status: Acute (8) Portal vein thrombosis Priority: Secondary Status: Chronic (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 Stuart is a 78 year old female with history of of CHFpEF, DM, HTN, Cirrhosis with portal TN and multiple venous thrombosis, Chronic thrombocytopenia, Obesity presented to the ED with confusion. As ED family she was found to be confused by her family on the morning of admission. while in the ED she was found to have elevated ammonia level of 96 however she was Axox3 without any neurological deficit. she was started on lactulose and was counseled that she will need to have 4 BMs. According to documentation from [facility], She was diagnosed with hepatocellular carcinoma. She was seen by oncology at that facility. Then MRI liver demonstrated hepatic mass with large occlusive thrombus in portal vein, splenic vein, and superior mesenteric vein. Anticoagulation was not recommended by the consultants. She was discharged home on the and [facility] cancer navigator recommended close follow-up locally. Laboratory work shows AFP tumor marker 2.6. CA 19-19 was 20.6. oncology was consulted and "Patient diagnosed with HCC and extensive thromboses, including a PV thrombus at [facility]. Appears to be Kathleen Gutierrez C based on encephalopathy, ascites, and labs per records. Will have patient f/u in clinic after discharge and determine goals of care at that time." oncology at [facility] also did not recommend any OAC for portal vein thrombosis and will follow patient as OP. on discharge she was Axox3, no focal deficit. UA was negative for infection and on neurological exam she did not show any focal deficits. she had no fever, no abdominal tenderness and no physical signs of ascitis so suspecial for SBP was low. she was also provided with GI appointment as OP. i discusssed above with surendra and she is in agreement with discharge. Discharge discussed with: patient, nurse, technology applications consultant - Time Spent with Patient Total time spent providing and/or coordinating discharge services: Less than 30 minutes - Discharge Medications Prescriptions: Lactulose 20 gm PO BID 30 Days #60 [facility] Home Medications: Cholecalciferol (D-3) [Vitamin D] 1,000 unit PO DAILY 05/29/16 [History] Furosemide [Lasix] 40 mg PO DAILY 30 Days tablet 10/20/16 [Rx] Propranolol HCl 40 mg PO BID 08/20/17 [History] glipiZIDE [Glucotrol] 5 mg PO 0800 09/29/18 [History] Pantoprazole Sodium 40 mg PO DAILY 10/05/18 [History] SitaGLIPtin [Januvia] 100 mg PO DAILY 10/05/18 [History] Spironolactone 50 mg PO DAILY 10/05/18 [History] Lactulose 20 gm PO BID 30 Days #60 [facility] 10/06/18 [Rx] Allergies/Adverse Reactions: Allergy/AdvReac Type Severity Reaction Status Date / Time meperidine Allergy Rash Verified 10/05/18 09:12 Date of admission: 10/05/18 13:15 Primary care physician: Caroline Mayen Consults: 10/05/18 13:41 Consult to Oncology [CONS] Routine Consulting Provider: [facility] Reason for Consult: Liver mass Call Completed: Yes 10/05/18 17:34 Consult to Pastoral Services [CONS] Routine Comment: - Constitutional Vitals: Temp Pulse Resp BP Pulse Ox 98.5 F 66 18 120/68 93 10/06/18 07:43 11/15/18 07:43 10/06/18 07:43 10/06/18 07:43 10/06/18 07:43 General appearance: Present: A&O X 3, morbidly obese, pleasant, no acute distress Exam: General appearance: Present: A&O X 3, morbidly obese, pleasant, no acute distress Exam: Patient is conversant, awake, alert - Head Head exam: Present: atraumatic, normocephalic - Eye Eye exam: Present: PERRL, conjuntiva pink, sclera anicteric Pupils: Present: PERRL - Neck Neck exam general surgery: Present: supple, trachea midline. Absent: lymphadenopathy - Respiratory Respiratory exam: Present: CTAB. Absent: accessory muscle use, rales, rhonchi, wheezes - Cardiovascular Cardiovascular exam: Present: RRR, +S1, +S2. Absent: diastolic murmur, gallop, rubs, systolic murmur - GI/Abdominal GI/Abdominal exam: Present: normal bowel sounds, soft, no peritoneal signs. Absent: distended, tenderness, ascitis - Extremities Exam Extremities exam: Present: warm, radial pulses palpable and symmetrical. Absent: calf tenderness, cyanotic, pedal edema - Neurological Exam Neurological exam: Present: alert, CN II-XII intact, oriented X3, no focal deficits. Absent: pronater drift, facial droop, speech deficit - Skin Skin exam: Present: dry, intact - Patient Status Disposition: Home, Self-Care Condition: Fair Functional capacity at discharge: independent ambulation Overall status at discharge: patient is progressing back to baseline - Discharge Instructions Follow Up With: [facility] [Provider Group] (WEB REQUEST SENT. Office will call with an appointment date and time if they feel its necessary. If you do not hear from the office please inform your PCP that [facility] recommend a GI referral. Thank you!) Caroline Mayen CNP [Primary Care Provider] - 10/11/18 9:30 am ([facility] recommends a GI referral. Please have PCP contact if they feel it is needed. Thank you!) Evaristo Starr MD [Partnered Physician] - 10/14/18 8:30 am - Diet and Activity Activity: increase activity as tolerated Diet: advance to your usual diet
--- NOTE | 2018-10-06 10:22 | Electrocardiograph Report ---
[facility] Test Date: 2018-10-05 Pat Name: Payal Stuart Department: EXAM12 Room: 2A38 Gender: Feed House Supervisor: : 1940 Requested By: Star Rivers Order Number: [id number] Reading MD: Vince Hood Measurements Intervals [place] Rate: 74 P: 50 MA: 150 QRS: 69 QRSD: 137 T: 3 QT: 431 QTc: 479 Interpretive Statements Sinus rhythm Right bundle branch block Electronically Signed On 10-06-2018 10:20:15 EST by Vince Hood
== END 2018-10-06 12:05 | disposition home or self-care (01) ==
LOC: 2ANU 09:00 → EMEROOARM 09:00 → 2ANU 15:40
PROVIDERS: ADMIT Internal Medicine; ATTEND Internal Medicine